=== PATIENT | male | born 1950 ===

== ENCOUNTER 2017-05-30 02:52 | Inpatient (IN) | payer MEDICARE, OTHER ==
--- NOTE | 2017-05-30 03:28 | C.PDOC ---
History Of Present Illness 67 y/o male with a PMHx of thyroid disease, c/o chest pain for the last 2 hours. Pain is to the mid-lower chest that radiates to the back that is associated with diaphoresis. Patient reports he was at rest when the pain began. Denies fever, chills, cough, SOB, nausea, vomiting, pain radiation to the shoulders or arm, leg swelling or pain, jaw pain, prolong immobilization, light headedness, or any other complaints. Time Seen by Provider: 05/30/17 03:13 Chief Complaint (Nursing): Chest Pain History Per: Patient History/Exam Limitations: no limitations Onset/Duration Of Symptoms: Hrs (2) Current Symptoms Are (Timing): Still Present Severity: Mild Quality: "Pain" Associated Symptoms: Diaphoresis Modifying Factors: None Exacerbating Factors: None Alleviating Factors: None Recent travel outside of the [place]: No Additional History Per: Patient Past Medical History Reviewed: Historical Data, Nursing Documentation, Vital Signs Vital Signs: Last Vital Signs Temp 97.6 F 05/30/17 04:28 Pulse 62 05/30/17 04:28 Resp 18 05/30/17 04:28 BP 126/70 05/30/17 04:28 Pulse Ox 99 05/30/17 04:28 - Medical History PMH: Hypothyroidism Family History: States: Unknown Family Hx - Social History Hx Alcohol Use: No Hx Substance Use: No - Immunization History Hx Tetanus Toxoid Vaccination: No Hx Influenza Vaccination: No Hx Pneumococcal Vaccination: No Review Of Systems Constitutional: Positive for: Sweats. Negative for: Fever, Chills Cardiovascular: Positive for: Chest Pain. Negative for: Light Headedness Respiratory: Negative for: Cough, Shortness of Breath Gastrointestinal: Negative for: Nausea, Vomiting Musculoskeletal: Positive for: Back Pain (Radiation of pain). Negative for: Shoulder Pain, Arm Pain, Leg Pain, Foot Pain, Other (jaw pain) Physical Exam - Physical Exam Additional Physical Exam Comments: Constitutional: No acute distress. Head: Normocephalic. Atraumatic. Eyes: PERRL. ENT: Moist mucous membranes. Neck: Supple. Cardiovascular: Regular rate. Radial pulse 2+ bilaterally. Chest: No tenderness. Respiratory: Clear to auscultation bilaterally. GI: Soft. Nontender. Nondistended. Back: No CVA tenderness. Musculoskeletal: No tenderness or swelling of extremities. Skin: No rash. Neurologic: Alert, no focal deficit. ED Course And Treatment - Laboratory Results Result Diagrams: 05/30/17 03:29 05/30/17 03:29 ECG: Interpreted By Me, Viewed By Me ECG Rhythm: Sinus Rhythm ECG Interpretation: Normal Interpretation Of ECG: No ST/T wave changes Rate From EC O2 Sat by Pulse Oximetry: 97 (RA) Pulse Ox Interpretation: Normal Medical Decision Making Medical Decision Making: Impression: 67 y/o male c/o chest pain associated with diaphoresis for the last 2 hours. PMHx of thyroid disease. Plans: * Blood work up * CXR * EKG * Aspirin * Reassess EKG sinus rhythm 63, NO ST/T wave changes CXR no acute disease. Disposition - Disposition Disposition: HOSPITALIZED Disposition Time: 04:42 Condition: FAIR Forms: [facility] (Romanian) - POA Core Measure Indicators: Chest Pain - Clinical Impression Clinical Impression: Chest pain - Scribe Statement The provider has reviewed the documentation as recorded by the Mikeibhannah wahl All medical record entries made by the Mikeibhannah were at my direction and personally dictated by me. I have reviewed the chart and agree that the record accurately reflects my personal performance of the history, physical exam, medical decision making, and the department course for this patient. I have also personally directed, reviewed, and agree with the discharge instructions and disposition.
[2017-05-30 03:32] LABS: BASO % 0.8 % (0.0-2.0); EOS # 0.4 K/uL (0.0-0.7); EOS % 6.5 % (0.0-4.0); HEMATOCRIT 47.1 % (35.0-51.0); LYMPH # 2.1 K/uL (1.0-4.3); LYMPH % 35.9 % (20.0-40.0); MEAN CELL VOLUME 90.1 fL (80.0-94.0); MEAN CORPUSCULAR HEMOGLOBIN 30.2 pg (27.0-31.0); MEAN CORPUSCULAR HGB CONC 33.5 g/dL (33.0-37.0); MEAN PLATELET VOLUME 8.7 fL (7.2-11.7); MONO # 0.6 K/uL (0.0-0.8); MONO % 10.1 % (0.0-10.0); NRBC % 0.1 % (0.0-2.0); RED CELL DISTRIBUTION WIDTH 13.3 % (11.5-14.5)
[2017-05-30 03:39] LABS: CHLORIDE 105 mmol/L (98-107)
[2017-05-30 03:40] LABS: SODIUM 142 mmol/L (132-148)
[2017-05-30 03:42] LABS: ALB/GLOB RATIO 1.1 (1.0-2.1); ALKALINE PHOSPHATASE 90 U/L (38-126); ALT/SGPT 39 U/L (21-72); AST/SGOT 28 U/L (17-59); BILIRUBIN,TOTAL 0.6 mg/dL (0.2-1.3); BLOOD UREA NITROGEN 16 mg/dL (9-20); CARBON DIOXIDE 26 mmol/L (22-30); GFR AFRICAN-AMERICAN > 60; GLUCOSE,RANDOM 123 mg/dL (75-110); TOTAL PROTEIN 6.9 g/dL (6.3-8.3)
[2017-05-30 03:43] LABS: CALCIUM 8.7 mg/dl (8.6-10.4)
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
[2017-05-30 10:11] LABS: CHOLESTEROL 156 mg/dL (0-199)
[2017-05-30 10:41] LABS: THYROID STIMULATING HORMONE 2.33 mIU/L (0.46-4.68)
[2017-05-30] MEDS: Enoxaparin 40 mg Syringe SC SCH (11:13)
--- NOTE | 2017-05-30 11:28 | RAD ---
HISTORY: chest pain COMPARISON: No prior. TECHNIQUE: Chest PA and lateral FINDINGS: LUNGS: The lungs are well inflated and clear. PLEURA: No significant pleural effusion identified. No pneumothorax apparent. CARDIOVASCULAR: Normal. OSSEOUS STRUCTURES: No significant abnormalities. VISUALIZED UPPER ABDOMEN: Normal. OTHER FINDINGS: None. IMPRESSION: No active pulmonary disease.
--- NOTE | 2017-05-30 12:04 | CP.PCM.CON ---
History of Present Illness - History of Present Illness History of Present Illness: Elderly male with history of some thyroid problem who came in with chest pain. Pain left sided and not associated with diaphoresis. He did some heavy lifting yesterday. Past Patient History - Past Medical History & Family History Past Medical History?: Yes - Past Social History Smoking Status: Never Smoked - ENDOCRINE/METABOLIC Hx Hypothyroidism: Yes - MUSCULOSKELETAL/RHEUMATOLOGICAL Hx Falls: No - PSYCHIATRIC Hx Substance Use: No Meds Allergies/Adverse Reactions: Allergies Allergy/AdvReac Type Severity Reaction Status Date / Time No Known Allergies Allergy Verified 05/30/17 05:06 - Medications Medications: Current Medications Aspirin (Aspirin Chewable) 81 mg PO DAILY [facility] Diazepam (Valium) 5 mg PO Q6 PRN PRN Reason: Anxiety Enoxaparin Sodium (Lovenox) 40 mg SC DAILY [facility] Last Admin: 05/30/17 11:13 Dose: 40 mg Famotidine (Pepcid) 20 mg PO BID [facility] Last Admin: 05/30/17 11:13 Dose: 20 mg Influenza Virus Vaccine (Afluria) 45 mcg IM .ONCE ONE Stop: 06/01/17 14:01 Ketorolac Tromethamine (Toradol) 15 mg IVP Q6 PRN PRN Reason: Pain, moderate (4-7) Last Admin: 05/30/17 06:40 Dose: 15 mg Ondansetron HCl (Zofran Inj) 4 mg IVP Q6H PRN PRN Reason: Nausea/Vomiting Pneumococcal Polyvalent Vaccine (Pneumovax 23 Vaccine) 0.5 ml IM .ONCE ONE Stop: 06/01/17 14:01 Physical Exam - Head Exam Head Exam: NORMOCEPHALIC - Neck Exam Neck exam: Positive for: Normal Inspection - Respiratory Exam Respiratory Exam: NORMAL BREATHING PATTERN - Cardiovascular Exam Cardiovascular Exam: REGULAR RHYTHM - GI/Abdominal Exam GI & Abdominal Exam: Normal Bowel Sounds - Extremities Exam Extremities exam: Positive for: normal inspection - Neurological Exam Neurological exam: Alert, Oriented x3 Results - Vital Signs Recent Vital Signs: Last Vital Signs Temp 98 F 05/30/17 08:00 Pulse 73 05/30/17 08:00 Resp 20 05/30/17 08:00 BP 136/76 05/30/17 08:00 Pulse Ox 96 05/30/17 08:00 - Labs Result Diagrams: 05/30/17 03:29 05/30/17 03:29 Labs: Laboratory Results - last 24 hr 05/30/17 05/30/17 05/30/17 05:45 09:55 10:01 PT 11.5 INR 1.0 APTT 29 D-Dimer, Quantitative Cancelled Hemoglobin A1c 6.2 Triglycerides 30 Cholesterol 156 LDL Cholesterol Direct 119 HDL Cholesterol 48 TSH 3rd Generation 2.33 - Impressions Impression: Normal sinus rhythm. Normal EKG. Assessment & Plan (1) Chest pain Assessment and Plan: Elderly male with history of no cardiac disease who came in with chest pain. Normal EKG. Pain atypical. If ACS work-up is negative may need Myocardial perfusion imaging. which can be done as out patient. Status: Acute
[2017-05-30 12:51] LABS: AMYLASE 69 U/L (30-110)
--- NOTE | 2017-05-30 20:18 | CARD ---
APPROVED REPORT EKG Measurement Heart [id number] NM [id number] <Conclusion> Normal sinus rhythm Normal ECG
--- NOTE | 2017-05-30 21:24 | CP.PCM.PN ---
<Tim Pollock - Last Filed: 05/30/17 21:21> Subjective - Date & Time of Evaluation Date of Evaluation: 05/30/17 Time of Evaluation: 21:21 - Subjective Subjective: PGY1 Note for Dr. Forte HPI: Patient seen and examined at bedside. Doing well with no complaints at this time. Stated that he does not have nay chest pain but does have some epigastric pain without heartburn. He says he was lifting something yesterday when he felt a pulling sensation in his L. Groin. Upon further examination he has a L. inguinal hernia. He said he does not have pain. It was fully reducible. I told him if it did begin to hurt or get stuck where he couldn't reduce it then she should come to the ER. I made sure that his PMD knew about the hernia and that he could follow up with a surgeon as an outpatient. Cards saw and cleared the patient from a cardiac standpoint Objective - Vital Signs/Intake and Output Vital Signs (last 24 hours): Temp Pulse Resp BP Pulse Ox 98.1 F 88 20 137/76 96 05/30/17 15:45 05/30/17 15:45 05/30/17 15:45 05/30/17 15:45 05/30/17 15:45 - Medications Medications: Current Medications Aspirin (Aspirin Chewable) 81 mg PO DAILY [facility] Diazepam (Valium) 5 mg PO Q6 PRN PRN Reason: Anxiety Enoxaparin Sodium (Lovenox) 40 mg SC DAILY [facility] Last Admin: 05/30/17 11:13 Dose: 40 mg Famotidine (Pepcid) 20 mg PO BID [facility] Last Admin: 05/30/17 18:42 Dose: 20 mg Influenza Virus Vaccine (Afluria) 45 mcg IM .ONCE ONE Stop: 06/01/17 14:01 Ketorolac Tromethamine (Toradol) 15 mg IVP Q6 PRN PRN Reason: Pain, moderate (4-7) Last Admin: 05/30/17 06:40 Dose: 15 mg Ondansetron HCl (Zofran Inj) 4 mg IVP Q6H PRN PRN Reason: Nausea/Vomiting Pneumococcal Polyvalent Vaccine (Pneumovax 23 Vaccine) 0.5 ml IM .ONCE ONE Stop: 06/01/17 14:01 - Labs Labs: PT 11.5 SECONDS (9.7-12.2) 05/30/17 05:45 INR 1.0 05/30/17 05:45 APTT 29 SECONDS (21-34) 05/30/17 05:45 - Constitutional Appears: Well, Non-toxic, No Acute Distress - Head Exam Head Exam: NORMAL INSPECTION - Eye Exam Eye Exam: EOMI - ENT Exam ENT Exam: Mucous Membranes Moist - Respiratory Exam Respiratory Exam: Clear to Ausculation Bilateral, NORMAL BREATHING PATTERN. absent: Rales, Rhonchi, Wheezes, Stridor - Cardiovascular Exam Cardiovascular Exam: REGULAR RHYTHM, RRR. absent: Bradycardia, Tachycardia, Gallop, JVD, Rubs, Murmur - GI/Abdominal Exam GI & Abdominal Exam: Soft, Tenderness (epigastric tenderness to palpation), Normal Bowel Sounds. absent: Distended - Neurological Exam Neurological Exam: Alert, Awake, Oriented x3 - Psychiatric Exam Psychiatric exam: Normal Affect, Normal Mood - Skin Skin Exam: Dry, Intact, Normal Color, Warm Assessment and Plan - Assessment and Plan (Free Text) Assessment: Chest pain, rule out acute myocardial infarction * All ROMIs negative * Cards (Livan) * cleared patient * follow up for stress test outpatient * F/U Echo L. Inguinal hernia * reducible on exam * can follow up with PMD or surgery outpatient PPX Scds Lovenox 30mg SC daily Pepcid 20mg PO daily <Milly Forte V - Last Filed: 05/31/17 06:26> Objective - Vital Signs/Intake and Output Vital Signs (last 24 hours): Temp Pulse Resp BP Pulse Ox 99.2 F 86 20 134/73 95 05/30/17 23:20 05/31/17 01:00 05/30/17 23:20 05/30/17 23:20 05/30/17 23:20 - Medications Medications: Current Medications Aspirin (Aspirin Chewable) 81 mg PO DAILY [facility] Diazepam (Valium) 5 mg PO Q6 PRN PRN Reason: Anxiety Enoxaparin Sodium (Lovenox) 40 mg SC DAILY [facility] Last Admin: 05/30/17 11:13 Dose: 40 mg Famotidine (Pepcid) 20 mg PO BID [facility] Last Admin: 05/30/17 18:42 Dose: 20 mg Influenza Virus Vaccine (Afluria) 45 mcg IM .ONCE ONE Stop: 06/01/17 14:01 Ketorolac Tromethamine (Toradol) 15 mg IVP Q6 PRN PRN Reason: Pain, moderate (4-7) Last Admin: 05/30/17 23:50 Dose: 15 mg Ondansetron HCl (Zofran Inj) 4 mg IVP Q6H PRN PRN Reason: Nausea/Vomiting Pneumococcal Polyvalent Vaccine (Pneumovax 23 Vaccine) 0.5 ml IM .ONCE ONE Stop: 06/01/17 14:01 - Labs Labs: PT 11.5 SECONDS (9.7-12.2) 05/30/17 05:45 INR 1.0 05/30/17 05:45 APTT 29 SECONDS (21-34) 05/30/17 05:45 Attending/Attestation - Attestation I have personally seen and examined this patient.: Yes I have fully participated in the care of the patient.: Yes I have reviewed all pertinent clinical information, including history, physical exam and plan: Yes Notes (Text): This is late computer entry for 05/30/17. Patient seen, examined, and case discussed with day-time resident. Patient seen at bedside this morning. Denies history of diabetes, hypertension, hyperlipidemia, prior hx of heart problems, and denies family hx of heart problems. Patient reports he had chest pain at the base of chest, was painful, but does not have it currently. Denies headache, denies palpitations, denies shortness of breathe, denies cough, denies dyspepsia, denies abdominal pain, denies nausea, denies vomitting, denies symptoms. Patient reports he did some heavy lifting recently and feels like he pulled something. (1) Chest pain, rule out acute myocardial infarction Assessment and Plan: Observation on rabbler ROMIs X3; patient JUANA X2 negative at time of shift; awaiting third JAUNA and pending echocardiogram Cardiology (Dr. Licona)-->if ACS is ruled out, recommended for myocardial stress test, which can be done outpatient Lipid panel: within normal Hgba1c: 6.2-->will need follow-up to prevent overt diabetes for the patient--> advocate lifestyle modifications EKG: NSR Medications: Aspirin 325 mg PO given in the ER Aspirin 81mg PO daily Status: Acute (2) History of thyroid disease Assessment and Plan: TSH: within normal Status: Acute (4) Prophylactic measure Assessment and Plan: Scds Lovenox 30mg SC daily Pepcid 20mg PO daily Status: Acute Disposition: Patient is pending third JUANA and Echo; If juana is negative, patient is for possible discharge tomorrow.
[2017-05-31] MEDS ORDERED: Iohexol 350mg/ml 100 ML ONE (10:19)
[2017-05-31] MEDS: Enoxaparin 40 mg Syringe SC SCH (10:25)
--- NOTE | 2017-05-31 10:32 | US ---
HISTORY: abdominal pain COMPARISON: None available. TECHNIQUE: Sonographic evaluation of the abdomen. FINDINGS: LIVER: Measures 13.9 cm in sagittal dimension and appears unremarkable. No focal hepatic mass identified. The main portal vein appears patent with normal directional flow. No intrahepatic bile duct dilatation. Trace right upper quadrant ascites. GALLBLADDER: Gallstones including immobile stones at the gallbladder neck. 5 mm non mobile echogenic focus which appears compatible with a polyp. No gallbladder wall thickening. Negative sonographic Cárdenas's sign as assessed by the director stage. COMMON BILE DUCT: Measures 5 mm. PANCREAS: Not well visualized. RIGHT KIDNEY: Measures 10.3 x 5.3 x 6.1cm. No obstructing calculus or hydronephrosis identified. 2.0 x 1.9 x 2.1 cm upper pole renal cyst. LEFT KIDNEY: Measures 11.5 x 5.4 x 5.4cm. No obstructing calculus or hydronephrosis identified. SPLEEN: Measures approximately 9.7 cm. AORTA: Limited views appear unremarkable. IVC: Limited views appear unremarkable. OTHER FINDINGS: None. IMPRESSION: Trace right upper quadrant ascites. Cholelithiasis including immobile stones at the gallbladder neck. No evidence of gallbladder wall thickening or pericholecystic edema. Negative sonographic Cárdenas's sign as assessed by the director stage. 5 mm probable gallbladder polyp. No consensus exist regarding management of polyps in the size range. Current recommendations indicate continued surveillance with serial follow-up imaging at 3, 6, and 12 months.
--- NOTE | 2017-05-31 11:37 | CT ---
PROCEDURE: CT Abdomen and Pelvis with contrast HISTORY: Abdominal Pain COMPARISON: Abdominal ultrasound performed 05/31/17 TECHNIQUE: Contrast dose: 100 mL Omnipaque 350 Radiation dose: Total exam DLP = 476.12 mGy-cm. This CT exam was performed using one or more of the following dose reduction techniques: Automated exposure control, adjustment of the mA and/or kV according to patient size, and/or use of iterative reconstruction technique. FINDINGS: LOWER THORAX: Mild bibasilar atelectasis. No visible pleural effusion or pneumothorax. Partially imaged coronary artery calcifications. LIVER: Hypoattenuation of the liver compatible with hepatic steatosis. GALLBLADDER AND BILE DUCTS: Distended gallbladder. No evidence of calcified gallstones. PANCREAS: Unremarkable. SPLEEN: Unremarkable. ADRENALS: Unremarkable. KIDNEYS AND URETERS: The kidneys enhance symmetrically. No hydronephrosis or obstructing calculus identified. 2.1 cm right renal cyst. VASCULATURE: No aortic aneurysm. BOWEL: The stomach is nondistended which limits evaluation. Gastric wall thickening noted distally with mild adjacent inflammatory changes ; correlate clinically for possibility of gastritis. Lack of oral contrast limits evaluation for bowel pathology. Bowel loops appear within normal limits of caliber without evidence of obstruction. APPENDIX: The limited visualized portions of the presumed appendix appear within normal limits of caliber. No secondary signs of acute appendicitis. PERITONEUM: Small right upper quadrant ascites. No definite free air. LYMPH NODES: No bulky adenopathy identified. BLADDER: Under distended urinary bladder. Anterior edge of the urinary bladder extends into the proximal opening of a left inguinal hernia. REPRODUCTIVE: The prostate gland measures approximately 4.2 x 4.6 cm. BONES: Degenerative changes. OTHER FINDINGS: Large left and small to moderate right fat containing inguinal hernias. The anterior edge of the urinary bladder extends into the proximal opening of the left inguinal hernia. Small fat containing umbilical hernia. IMPRESSION: Mild bibasilar atelectasis. Hypoattenuation of the liver compatible with hepatic steatosis. Distended gallbladder. Cholelithiasis evident on abdominal ultrasound performed the same day cannot be appreciated by CT. 2.1 cm right renal cyst. Under distention of the stomach limits evaluation. Gastric wall thickening is noted distally with mild adjacent inflammatory changes; correlate clinically for possibility of gastritis. Small right upper quadrant ascites. Large left and small to moderate right fat containing inguinal hernias. The anterior edge of the urinary bladder extends into the proximal opening of the left inguinal hernia. Enlarged prostate gland. Recommend correlation with PSA. Additional findings as above.
--- NOTE | 2017-05-31 11:39 | CP.PCM.CON ---
History of Present Illness - History of Present Illness History of Present Illness: SURGERY CONSULT NOTE FOR DR. MANUEL 67M presents to the hospital originally for chest and back pain that has since resolved. Patient states the pain is now in the epigastric/ RUQ region. He states he has vomited once since being in the hospital, but denies nausea currently. Patient denies fevers, chills. He has never had this type of pain before. PMH: hypothyroid PSH: skin grafts on right flank from [facility] 3years ago Social: denies tobacco, alcohol, illicit drugs abuse Allergies: NKDA Past Patient History - Past Medical History & Family History Past Medical History?: Yes - Past Social History Smoking Status: Never Smoked - ENDOCRINE/METABOLIC Hx Hypothyroidism: Yes - MUSCULOSKELETAL/RHEUMATOLOGICAL Hx Falls: No - PSYCHIATRIC Hx Substance Use: No Meds Allergies/Adverse Reactions: Allergies Allergy/AdvReac Type Severity Reaction Status Date / Time No Known Allergies Allergy Verified 05/30/17 05:06 - Medications Medications: Current Medications Diazepam (Valium) 5 mg PO Q6 PRN PRN Reason: Anxiety Enoxaparin Sodium (Lovenox) 40 mg SC DAILY [facility] Last Admin: 05/31/17 10:25 Dose: Not Given Famotidine (Pepcid) 20 mg PO BID [facility] Last Admin: 05/31/17 10:39 Dose: 20 mg Influenza Virus Vaccine (Afluria) 45 mcg IM .ONCE ONE Stop: 06/01/17 14:01 Ondansetron HCl (Zofran Inj) 4 mg IVP Q6H PRN PRN Reason: Nausea/Vomiting Last Admin: 05/31/17 08:34 Dose: 4 mg Pneumococcal Polyvalent Vaccine (Pneumovax 23 Vaccine) 0.5 ml IM .ONCE ONE Stop: 06/01/17 14:01 Physical Exam - Constitutional Appears: Non-toxic, No Acute Distress - Head Exam Head Exam: ATRAUMATIC - ENT Exam ENT Exam: Mucous Membranes Moist - Respiratory Exam Respiratory Exam: Clear to Auscultation Bilateral, NORMAL BREATHING PATTERN - Cardiovascular Exam Cardiovascular Exam: REGULAR RHYTHM, +S1, +S2 - GI/Abdominal Exam GI & Abdominal Exam: Soft, Tenderness (RUQ). absent: Distended, Firm, Guarding , Rebound, Rigid Additional comments: healed skin graft in right flank - Extremities Exam Extremities exam: Negative for: pedal edema, tenderness - Neurological Exam Neurological exam: Alert, Oriented x3 - Psychiatric Exam Psychiatric exam: Normal Affect, Normal Mood - Skin Skin Exam: Dry, Intact, Normal Color, Warm Results - Vital Signs Recent Vital Signs: Last Vital Signs Temp 98.9 F 05/31/17 08:00 Pulse 75 05/31/17 08:44 Resp 20 05/31/17 08:00 BP 124/77 05/31/17 08:00 Pulse Ox 93 L 05/31/17 08:00 - Labs Result Diagrams: 05/31/17 11:31 05/31/17 11:31 Labs: Laboratory Results - last 24 hr 05/30/17 05/30/17 05/30/17 09:55 11:36 17:11 D-Dimer, Quantitative < 200 Total Creatine Kinase 165 CK-MB (Mass) 1.50 Troponin I < 0.0120 Troponin I, Quant < 0.0120 Triglycerides 30 Cholesterol 156 LDL Cholesterol Direct 119 HDL Cholesterol 48 Amylase 69 Lipase 68 TSH 3rd Generation 2.33 Assessment & Plan - Assessment and Plan (Free Text) Assessment: 67M with RUQ pain likely of gallbladder origin US: gallstone in the gallbladder neck, CBD-5mm Plan: - NPO, pain control - IVFluids - Consent needed - Preop patient for OR tomorrow 06/01/[address] Jaspal Magdaleno, PGY2
[2017-05-31 11:44] LABS: BASO % 0.3 % (0.0-2.0); EOS % 0.3 % (0.0-4.0); HEMATOCRIT 47.4 % (35.0-51.0); MEAN CORPUSCULAR HEMOGLOBIN 29.7 pg (27.0-31.0); MEAN PLATELET VOLUME 8.9 fL (7.2-11.7); MONO # 0.7 K/uL (0.0-0.8); MONO % 4.5 % (0.0-10.0); PLATELET COUNT 132 K/uL (130-400); WHITE BLOOD COUNT 16.2 K/uL (4.8-10.8)
[2017-05-31] MEDS: Sodium Chloride 0.9% 1,000 ML IV SCH (12:00)
[2017-05-31 12:06] LABS: CHLORIDE 99 mmol/L (98-107); SODIUM 135 mmol/L (132-148)
[2017-05-31 12:09] LABS: ALB/GLOB RATIO 1.2 (1.0-2.1); ALKALINE PHOSPHATASE 71 U/L (38-126); ALT/SGPT 32 U/L (21-72); AST/SGOT 21 U/L (17-59); BILIRUBIN,TOTAL 1.2 mg/dL (0.2-1.3); BLOOD UREA NITROGEN 15 mg/dL (9-20); CALCIUM 8.2 mg/dl (8.6-10.4); CARBON DIOXIDE 26 mmol/L (22-30); GFR AFRICAN-AMERICAN > 60; GLUCOSE,RANDOM 118 mg/dL (75-110); TOTAL PROTEIN 6.2 g/dL (6.3-8.3)
[2017-05-31 12:24] LABS: NEUTROPHIL 79 % (50-75); TOTAL CELLS COUNTED 100
[2017-05-31 13:16] LABS: RBC URINE 2 /hpf (0-3); URINE BILIRUBIN NEGATIVE (NEGATIVE); URINE BLOOD 1+ (NEGATIVE); URINE COLOR Yellow (YELLOW); URINE GLUCOSE (UA) NORMAL (Normal); URINE KETONE NEGATIVE (NEGATIVE); URINE LEUKOCYTE ESTERASE NEG Leu/uL (Negative); URINE PROTEIN NEGATIVE (NEGATIVE); URINE UROBILINOGEN NORMAL mg/dL (0.2-1.0); WBC URINE < 1 /hpf (0-5)
--- NOTE | 2017-05-31 14:00 | CP.PCM.PN ---
<Tim Pollock - Last Filed: 05/31/17 13:56> Subjective - Date & Time of Evaluation Date of Evaluation: 05/31/17 Time of Evaluation: 13:56 - Subjective Subjective: PGY1 Note for Dr. Forte HPI: Patient seen and examined at bedside. Had increasing pain in abdomen this morning. I saw him multiple times this am. Patient was unable to leep on his right side all night. He was unable to roll over in bed. When i saw him again he was sitting up feeling very nausea. At which time i gave him zofran and morphine for his pain. upon examination of his abdomen he was guarding with exquisite tenderness in the RUQ but no peritoneal signs. I stopped the echo as this case is clearly not cardiac in nature. I ordered an abdominal US with the thought that this patient may have an acute betzaida. When i check on the patient again he was feeling relief after the pain medicine. I talked to the surgery resident and he agreed. He is scheduled for the OR tomorrow at 1230. Patient denies any CP, SOB, Fever, Vomiting, Diarrhea or chills. Objective - Vital Signs/Intake and Output Vital Signs (last 24 hours): Temp Pulse Resp BP Pulse Ox 98.9 F 75 20 124/77 93 L 05/31/17 08:00 05/31/17 08:44 05/31/17 08:00 05/31/17 08:00 05/31/17 08:00 - Medications Medications: Current Medications Famotidine (Pepcid) 20 mg PO BID [facility] Last Admin: 05/31/17 10:39 Dose: 20 mg Hydromorphone HCl (Dilaudid) 0.5 mg IVP Q4H PRN PRN Reason: Pain, severe (8-10) Sodium Chloride (Sodium Chloride 0.9%) 1,000 mls @ 100 mls/hr IV .Q10H [facility] Last Admin: 05/31/17 12:00 Dose: 100 mls/hr Ceftriaxone Sodium 1 gm/ (Sodium Chloride) 100 mls @ 100 mls/hr IVPB Q24H [facility] Last Admin: 05/31/17 13:11 Dose: 100 mls/hr Metronidazole (Flagyl) 250 mg in 50 mls @ 50 mls/hr IVPB Q8 [facility] Influenza Virus Vaccine (Afluria) 45 mcg IM .ONCE ONE Stop: 06/01/17 14:01 Ondansetron HCl (Zofran Inj) 4 mg IVP Q6H PRN PRN Reason: Nausea/Vomiting Last Admin: 05/31/17 08:34 Dose: 4 mg Pneumococcal Polyvalent Vaccine (Pneumovax 23 Vaccine) 0.5 ml IM .ONCE ONE Stop: 06/01/17 14:01 - Labs Labs: PT 11.5 SECONDS (9.7-12.2) 05/30/17 05:45 INR 1.0 05/30/17 05:45 APTT 29 SECONDS (21-34) 05/30/17 05:45 - Constitutional Appears: Well, Non-toxic, No Acute Distress - Head Exam Head Exam: ATRAUMATIC, NORMAL INSPECTION, NORMOCEPHALIC - Eye Exam Eye Exam: EOMI Pupil Exam: NORMAL ACCOMODATION - ENT Exam ENT Exam: Mucous Membranes Moist - Respiratory Exam Respiratory Exam: Clear to Ausculation Bilateral - Cardiovascular Exam Cardiovascular Exam: REGULAR RHYTHM - GI/Abdominal Exam GI & Abdominal Exam: Guarding, Soft, Tenderness (exquisite tenderness in RUQ with guarding. No rigidity). absent: Distended, Rigid - Extremities Exam Extremities Exam: absent: Joint Swelling - Neurological Exam Neurological Exam: Alert, Awake, Oriented x3 - Psychiatric Exam Psychiatric exam: Normal Affect, Normal Mood - Skin Skin Exam: Dry, Intact, Normal Color, Warm Assessment and Plan - Assessment and Plan (Free Text) Assessment: Chest pain, rule out acute myocardial infarction * All ROMIs negative * Cards (Livan) * cleared patient * follow up for stress test outpatient Cholelithiasis * Surgery (Arago) * OR tomorrow for lap betzaida at 1230 * Abdominal US - cholelithiasis with immobile stones at GB neck, no wall thickening or pericholecystic fluid, 5mm GB polyp * Abdominal CT - gastric wall thickening with adjacent inflam changes * NPO past midnight * Hold anticoag L. Inguinal hernia * reducible on exam * can follow up with PMD or surgery outpatient PPX Scds Lovenox 30mg SC daily - hold Pepcid 20mg PO daily <Milly Forte V - Last Filed: 05/31/17 18:07> Objective - Vital Signs/Intake and Output Vital Signs (last 24 hours): Temp Pulse Resp BP Pulse Ox 97.8 F 79 20 122/74 97 05/31/17 15:18 05/31/17 15:18 05/31/17 15:18 05/31/17 15:18 05/31/17 15:18 - Medications Medications: Current Medications Famotidine (Pepcid) 20 mg PO BID [facility] Last Admin: 05/31/17 10:39 Dose: 20 mg Hydromorphone HCl (Dilaudid) 0.5 mg IVP Q4H PRN PRN Reason: Pain, severe (8-10) Last Admin: 05/31/17 14:19 Dose: 0.5 mg Sodium Chloride (Sodium Chloride 0.9%) 1,000 mls @ 100 mls/hr IV .Q10H [facility] Last Admin: 05/31/17 12:00 Dose: 100 mls/hr Ceftriaxone Sodium 1 gm/ (Sodium Chloride) 100 mls @ 100 mls/hr IVPB Q24H [facility] Last Admin: 05/31/17 13:11 Dose: 100 mls/hr Metronidazole (Flagyl) 250 mg in 50 mls @ 50 mls/hr IVPB Q8 [facility] Last Admin: 05/31/17 14:18 Dose: 50 mls/hr Influenza Virus Vaccine (Afluria) 45 mcg IM .ONCE ONE Stop: 06/01/17 14:01 Ondansetron HCl (Zofran Inj) 4 mg IVP Q6H PRN PRN Reason: Nausea/Vomiting Last Admin: 05/31/17 08:34 Dose: 4 mg Pneumococcal Polyvalent Vaccine (Pneumovax 23 Vaccine) 0.5 ml IM .ONCE ONE Stop: 06/01/17 14:01 - Labs Labs: PT 11.5 SECONDS (9.7-12.2) 05/30/17 05:45 INR 1.0 05/30/17 05:45 APTT 29 SECONDS (21-34) 05/30/17 05:45 Attending/Attestation - Attestation I have personally seen and examined this patient.: Yes I have fully participated in the care of the patient.: Yes I have reviewed all pertinent clinical information, including history, physical exam and plan: Yes Notes (Text): Patient seen, examined, and case discussed with day-time resident. Patient seen at bedside this morning with his . Patient reports right upper quadrant abdominal pain and nausea and vomitted this morning. Patient appears more distended compared to yesterday and has positive Cárdenas's sign. Patient completed abdominal US and CT Abdomen and Pelvis w IV contrast. Nurse Reynaldo collected his blood work reflecting elevated white count. Blood, UA and urine studies collected. Patient started on Rocephin 1 gram IV daily and Flagyl 500mg IV Q 8 hours. Aspirin, Valium, Toradol and Lovenox discontinued. Discussed with surgery resident, patient going to the OR tomorrow. NPO after midnight. Resident spoke with cardiology, patient may go to procedure. Patient status changed to in-patient given patient will need surgical intervention for acute cholecystitis. (1) Chest pain, rule out acute myocardial infarction Assessment and Plan: * Cardiology (Dr. Licona) on consult-->help appreciated * Monitor ROMIs X3: negative * Lipid panel: within normal * Hgba1c: 6.2-->will need follow-up to prevent overt diabetes for the patient--> advocate lifestyle modifications * Medications: Aspirin 325 mg PO given in the ER pn admission; d/c aspirin Status: Acute (2) Acute Cholecystitis Epigastric Pain Cholelithiasis Assessment and Plan: * General surgery (Dr. Shay)-->help appreciated-->patient go to the OR tomorrow for acute cholecystitis; NPO after midnight, anticoagulation held * Lipase and amylase normal * Abdominal US (05/31/17): Trace right upper quadrant ascites. Cholelithiasis including immobile stones at the gallbladder neck. no evidence of gallbladder wall thickening or pericholecystic edema. Negative sonographic Cárdenas's sign. 5mm probable gallabldder polyp. * CT Abdomen and Pelvis (05/31/17): mild basilar atelectasis, hypoattentuation of the liver compatible with hepatic steatosis. Distended gallbladder. Cholelithiasis evident on abdominal ultrasound. 2.1 cm right renal cyst. Gastic wall thickening noted distally with mild adjacent inflammatory changes, gastritis * Flagyl 500mg IV Q 8 hours and Rocephin 1 gram Iv q daily * NS 100cc/hr * NPO after midnight Status: Acute (3) Leukocytosis Assessment and Plan: * Blood, UA and urine culture collected * Start Rocephin 1 gram Iv qdaily and Flagyl 500mg IV Q 8 hours Status: Acute (4) Prophylactic measure Assessment and Plan: * Scds * d/c Lovenox 30mg SC daily-->going to OR tomorrow * Pepcid 20mg PO daily Status: Acute Disposition: Changed to inpatient status. Patient will go to the OR tomorrow with general surgery for acute cholecystitis.
[2017-05-31] MEDS: metroNIDAZOLE IV 250mg/50 ml 250 MG/50 ML BAG IVPB SCH ×2 (14:18→21:47)
[2017-05-31] MEDS: HYDROmorphone 0.5 mg/0.5 ml ISec IVP PRN ×2 (14:19→21:46)
--- NOTE | 2017-05-31 14:52 | CP.PCM.PN ---
Subjective - Date & Time of Evaluation Date of Evaluation: 05/31/17 Time of Evaluation: 14:50 - Subjective Subjective: Awaiting for transfer to another floor. Plans for cholecystectomy tomorrow. Objective - Vital Signs/Intake and Output Vital Signs (last 24 hours): Temp Pulse Resp BP Pulse Ox 98.1 F 77 20 102/68 94 L 05/31/17 14:29 05/31/17 14:29 05/31/17 14:29 05/31/17 14:29 05/31/17 14:29 - Medications Medications: Current Medications Famotidine (Pepcid) 20 mg PO BID [facility] Last Admin: 05/31/17 10:39 Dose: 20 mg Hydromorphone HCl (Dilaudid) 0.5 mg IVP Q4H PRN PRN Reason: Pain, severe (8-10) Last Admin: 05/31/17 14:19 Dose: 0.5 mg Sodium Chloride (Sodium Chloride 0.9%) 1,000 mls @ 100 mls/hr IV .Q10H [facility] Last Admin: 05/31/17 12:00 Dose: 100 mls/hr Ceftriaxone Sodium 1 gm/ (Sodium Chloride) 100 mls @ 100 mls/hr IVPB Q24H [facility] Last Admin: 05/31/17 13:11 Dose: 100 mls/hr Metronidazole (Flagyl) 250 mg in 50 mls @ 50 mls/hr IVPB Q8 [facility] Last Admin: 05/31/17 14:18 Dose: 50 mls/hr Influenza Virus Vaccine (Afluria) 45 mcg IM .ONCE ONE Stop: 06/01/17 14:01 Ondansetron HCl (Zofran Inj) 4 mg IVP Q6H PRN PRN Reason: Nausea/Vomiting Last Admin: 05/31/17 08:34 Dose: 4 mg Pneumococcal Polyvalent Vaccine (Pneumovax 23 Vaccine) 0.5 ml IM .ONCE ONE Stop: 06/01/17 14:01 - Labs Labs: PT 11.5 SECONDS (9.7-12.2) 05/30/17 05:45 INR 1.0 05/30/17 05:45 APTT 29 SECONDS (21-34) 05/30/17 05:45 - Head Exam Head Exam: NORMOCEPHALIC - Neck Exam Neck Exam: Normal Inspection - Respiratory Exam Respiratory Exam: NORMAL BREATHING PATTERN - Cardiovascular Exam Cardiovascular Exam: REGULAR RHYTHM Assessment and Plan (1) Chest pain Assessment & Plan: May be secondary to cholecystitis/. May proceed with planned procedure with acceptable risk. Status: Acute
[2017-06-01] MEDS: Sodium Chloride 0.9% 1,000 ML IV SCH ×2 (00:48→15:31)
[2017-06-01] MEDS: HYDROmorphone 0.5 mg/0.5 ml ISec IVP PRN ×3 (01:55→12:39)
[2017-06-01] MEDS: metroNIDAZOLE IV 250mg/50 ml 250 MG/50 ML BAG IVPB SCH ×3 (05:27→21:55)
[2017-06-01 07:58] LABS: EOS # 0.1 K/uL (0.0-0.7)
[2017-06-01 08:06] LABS: BASO # 0.1 K/uL (0.0-0.2)
[2017-06-01 08:11] LABS: CHLORIDE 103 mmol/L (98-107); MEAN CELL VOLUME 89.7 fL (80.0-94.0); MONO # 0.9 K/uL (0.0-0.8); MONO % 5.7 % (0.0-10.0)
[2017-06-01 08:12] LABS: HEMATOCRIT 45.6 % (35.0-51.0); MEAN CORPUSCULAR HGB CONC 33.5 g/dL (33.0-37.0); MEAN PLATELET VOLUME 8.5 fL (7.2-11.7); PLATELET COUNT 129 K/uL (130-400); POTASSIUM 4.1 mmol/L (3.6-5.2); RED CELL DISTRIBUTION WIDTH 13.1 % (11.5-14.5); SODIUM 139 mmol/L (132-148); WHITE BLOOD COUNT 15.1 K/uL (4.8-10.8)
[2017-06-01 08:13] LABS: BASO % 0.2 % (0.0-2.0); LYMPH # 1.3 K/uL (1.0-4.3); LYMPH % 8.3 % (20.0-40.0)
[2017-06-01 08:14] LABS: ALB/GLOB RATIO 1.1 (1.0-2.1); ALKALINE PHOSPHATASE 70 U/L (38-126); ALT/SGPT 34 U/L (21-72); AST/SGOT 22 U/L (17-59); BILIRUBIN,TOTAL 0.9 mg/dL (0.2-1.3); BLOOD UREA NITROGEN 13 mg/dL (9-20); CARBON DIOXIDE 26 mmol/L (22-30); GFR AFRICAN-AMERICAN > 60; GLUCOSE,RANDOM 125 mg/dL (75-110); TOTAL PROTEIN 6.5 g/dL (6.3-8.3)
[2017-06-01 08:15] LABS: CALCIUM 7.7 mg/dl (8.6-10.4)
[2017-06-01 09:12] LABS: EOSINOPHIL 1 % (0-4); NEUTROPHIL 70 % (50-75); TOTAL CELLS COUNTED 100
--- NOTE | 2017-06-01 09:48 | CP.PCM.PN ---
<Tim Pollock - Last Filed: 06/01/17 14:20> Subjective - Date & Time of Evaluation Date of Evaluation: 06/01/17 Time of Evaluation: 09:45 - Subjective Subjective: PGY1 Note for Dr. Forte HPI: Patient seen and examined at bedside. Doing well. Was given pain medicine this morning. I talked to the surgery resident and they will be taking him for a lap betzaida today. Looks more comfortable after the pain medicine but still says he has some pain. I explained the procedure to the patient and answered all of his questions. He specifically denies SOB, CP, Diarrhea, F/N, chills Objective - Vital Signs/Intake and Output Vital Signs (last 24 hours): Temp Pulse Resp BP Pulse Ox 98.8 F 77 20 116/73 95 06/01/17 08:17 06/01/17 08:17 06/01/17 08:17 06/01/17 08:17 06/01/17 08:17 Intake and Output: 06/01/17 06/01/17 06:59 18:59 Intake Total 2200 Output Total 200 Balance 2000 - Medications Medications: Current Medications Famotidine (Pepcid) 20 mg PO BID [facility] Last Admin: 05/31/17 10:39 Dose: 20 mg Hydromorphone HCl (Dilaudid) 0.5 mg IVP Q4H PRN PRN Reason: Pain, severe (8-10) Last Admin: 06/01/17 05:39 Dose: 0.5 mg Sodium Chloride (Sodium Chloride 0.9%) 1,000 mls @ 100 mls/hr IV .Q10H [facility] Last Admin: 06/01/17 00:48 Dose: 100 mls/hr Ceftriaxone Sodium 1 gm/ (Sodium Chloride) 100 mls @ 100 mls/hr IVPB Q24H [facility] Last Admin: 05/31/17 13:11 Dose: 100 mls/hr Metronidazole (Flagyl) 250 mg in 50 mls @ 50 mls/hr IVPB Q8 [facility] Last Admin: 06/01/17 05:27 Dose: 50 mls/hr Influenza Virus Vaccine (Afluria) 45 mcg IM .ONCE ONE Stop: 06/01/17 14:01 Ondansetron HCl (Zofran Inj) 4 mg IVP Q6H PRN PRN Reason: Nausea/Vomiting Last Admin: 05/31/17 08:34 Dose: 4 mg Pneumococcal Polyvalent Vaccine (Pneumovax 23 Vaccine) 0.5 ml IM .ONCE ONE Stop: 06/02/17 14:01 - Labs Labs: 06/01/17 07:43 06/01/17 07:43 PT 11.5 SECONDS (9.7-12.2) 05/30/17 05:45 INR 1.0 05/30/17 05:45 APTT 29 SECONDS (21-34) 05/30/17 05:45 - Constitutional Appears: Well, Non-toxic, No Acute Distress - Head Exam Head Exam: ATRAUMATIC, NORMAL INSPECTION, NORMOCEPHALIC - Eye Exam Eye Exam: EOMI - ENT Exam ENT Exam: Mucous Membranes Moist - Respiratory Exam Respiratory Exam: Clear to Ausculation Bilateral, NORMAL BREATHING PATTERN. absent: Rales, Rhonchi, Wheezes, Stridor - Cardiovascular Exam Cardiovascular Exam: REGULAR RHYTHM, RRR. absent: Bradycardia, Tachycardia, Gallop, Rubs, Murmur - GI/Abdominal Exam GI & Abdominal Exam: Soft (RUQ), Normal Bowel Sounds. absent: Distended, Tenderness - Extremities Exam Extremities Exam: absent: Joint Swelling, Tenderness - Neurological Exam Neurological Exam: Alert, Awake, Oriented x3 - Psychiatric Exam Psychiatric exam: Normal Affect, Normal Mood - Skin Skin Exam: Dry, Intact, Normal Color, Warm Assessment and Plan - Assessment and Plan (Free Text) Assessment: Chest pain, rule out acute myocardial infarction * All ROMIs negative * Cards (Livan) * cleared patient for surgery * follow up for stress test outpatient Cholelithiasis * Surgery (Arago) * OR today for lap betzaida * Abdominal US - cholelithiasis with immobile stones at GB neck, no wall thickening or pericholecystic fluid, 5mm GB polyp * Abdominal CT - gastric wall thickening with adjacent inflam changes L. Inguinal hernia * reducible on exam * can follow up with PMD or surgery outpatient PPX Scds Lovenox 30mg SC daily - hold Pepcid 20mg PO daily <Milly Forte V - Last Filed: 06/02/17 08:30> Objective - Vital Signs/Intake and Output Vital Signs (last 24 hours): Temp Pulse Resp BP Pulse Ox 98.2 F 78 20 108/67 97 06/02/17 08:00 06/02/17 08:00 06/02/17 08:00 06/02/17 08:00 06/02/17 08:00 Intake and Output: 06/02/17 06/02/17 06:59 18:59 Intake Total 1400 Output Total 700 Balance 700 - Medications Medications: Current Medications Famotidine (Pepcid) 20 mg PO BID [facility] Last Admin: 05/31/17 10:39 Dose: 20 mg Hydromorphone HCl (Dilaudid) 0.5 mg IVP Q4H PRN PRN Reason: Pain, severe (8-10) Last Admin: 06/01/17 12:39 Dose: 0.5 mg Hydromorphone HCl (Dilaudid) 0.5 mg IVP Q15M PRN PRN Reason: Pain, severe (8-10) Last Admin: 06/01/17 20:18 Dose: 0.5 mg Hydromorphone/Sodium Chloride (Dilaudid [employer]ological Risk Assessor) 6 mg IV Q4H PRN; Protocol PRN Reason: Pain, moderate (4-7) Last Admin: 06/01/17 21:35 Dose: 0.2 mg Sodium Chloride (Sodium Chloride 0.9%) 1,000 mls @ 100 mls/hr IV .Q10H [facility] Last Admin: 06/02/17 04:32 Dose: 100 mls/hr Ceftriaxone Sodium 1 gm/ (Sodium Chloride) 100 mls @ 100 mls/hr IVPB Q24H [facility] Last Admin: 06/01/17 12:40 Dose: 100 mls/hr Metronidazole (Flagyl) 250 mg in 50 mls @ 50 mls/hr IVPB Q8 [facility] Last Admin: 06/02/17 05:25 Dose: 50 mls/hr Ondansetron HCl (Zofran Inj) 4 mg IVP Q6H PRN PRN Reason: Nausea/Vomiting Last Admin: 05/31/17 08:34 Dose: 4 mg Pneumococcal Polyvalent Vaccine (Pneumovax 23 Vaccine) 0.5 ml IM .ONCE ONE Stop: 06/02/17 14:01 - Labs Labs: 06/02/17 07:16 06/02/17 07:16 PT 11.5 SECONDS (9.7-12.2) 05/30/17 05:45 INR 1.0 05/30/17 05:45 APTT 29 SECONDS (21-34) 05/30/17 05:45 Attending/Attestation - Attestation I have personally seen and examined this patient.: Yes I have fully participated in the care of the patient.: Yes I have reviewed all pertinent clinical information, including history, physical exam and plan: Yes Notes (Text): This is late computer entry for 06/01/17 Patient seen, examined, and case discussed with day-time resident. Patient seen at bedside this morning with his . Patient reports increased right upper quadrant abdominal pain and increased abdominal distension compared to yesterday. Patient has positive Cárdenas's sign. Patient started on Rocephin 1 gram IV daily and Flagyl 500mg IV Q 8 hours. Patient scheduled for lap betzaida and approximate OR time at 12:30PM. (1) Acute Cholecystitis Epigastric Pain Cholelithiasis Assessment and Plan: * General surgery (Dr. Shay)-->help appreciated-->patient go to the OR today for acute cholecystitis; currently NPO after midnight, anticoagulation held day prior * Lipase and amylase normal * Abdominal US (05/31/17): Trace right upper quadrant ascites. Cholelithiasis including immobile stones at the gallbladder neck. no evidence of gallbladder wall thickening or pericholecystic edema. Negative sonographic Cárdenas's sign. 5mm probable gallabldder polyp. * CT Abdomen and Pelvis (05/31/17): mild basilar atelectasis, hypoattentuation of the liver compatible with hepatic steatosis. Distended gallbladder. Cholelithiasis evident on abdominal ultrasound. 2.1 cm right renal cyst. Gastic wall thickening noted distally with mild adjacent inflammatory changes, gastritis * Flagyl 500mg IV Q 8 hours and Rocephin 1 gram Iv q daily (active since 05/31/17 ) * NS 100cc/hr * NPO after midnight Status: Acute (2) Chest pain, rule out acute myocardial infarction Assessment and Plan: * Cardiology (Dr. Licona) on consult-->help appreciated * Monitor ROMIs X3: negative * Lipid panel: within normal * Hgba1c: 6.2-->will need follow-up to prevent overt diabetes for the patient--> advocate lifestyle modifications * Medications: Aspirin 325 mg PO given in the ER pn admission; d/c aspirin Status: Resolved (3) Leukocytosis Assessment and Plan: * Blood, UA and urine culture collected day prior to starting antibiotics * Rocephin 1 gram Iv qdaily and Flagyl 500mg IV Q 8 hours (active since 05/31/17) * Likely secondary to acute cholecystitis Status: Acute (4) Impaired glucose tolerance Assessment and Plan: * Hgba1c: 6.2-->will need follow-up to prevent overt diabetes for the patient--> advocate lifestyle modifications (5) Prophylactic measure Assessment and Plan: * Scds * Off anticoagulation secondary to going to OR today * Pepcid 20mg PO daily Status: Acute Disposition: Patient will go to the OR today with general surgery for acute cholecystitis with acceptable risk per cardiology.
[2017-06-01] MEDS ORDERED: Pneumococcal 23-Valent Vaccine IM ONE (14:00)
[2017-06-01] MEDS: Influenza Virus Vaccine 45 mcg/0.5 ml Syr IM ONE ×2 (14:52→14:54)
[2017-06-01] MEDS ORDERED: Propofol 10 mg/ml Inj (20 ML) ONE (17:21)
[2017-06-01] MEDS ORDERED: Midazolam 2 MG/2 ML VIAL ONE (17:21)
[2017-06-01] MEDS ORDERED: Succinylcholine Chloride 20 mg/ml Syr (5 ml) IV ONE (17:22)
[2017-06-01] MEDS ORDERED: Rocuronium 10 mg/ml (5 ml) ONE (17:22)
[2017-06-01] MEDS ORDERED: Lactated Ringer's 1,000 ML IV ONE ×3 (17:30→18:45)
[2017-06-01] MEDS ORDERED: Bupivacaine 0.5%/Epi 1:200,000 (10 ML SOL) ONE ×2 (17:44→19:25)
[2017-06-01] MEDS ORDERED: HYDROmorphone 0.5 mg/0.5 ml ISec IVP PRN (18:16)
[2017-06-01] MEDS ORDERED: Neostigmine Methylsulfate 3mg/3ml Syringe IV ONE (18:49)
--- NOTE | 2017-06-01 19:39 | PCM.SURG1 ---
Surgeon's Initial Post Op Note - Surgeon's Notes Surgeon: Dr. Shay Trailer Body Assembler: Gideon García Type of Anesthesia: General Endo Pre-Operative Diagnosis: Acute Cholecystitis Operative Findings: See operative report Post-Operative Diagnosis: Acute cholecystitis Operation Performed: Laparoscopic cholecystectomy converted to open Specimen/Specimens Removed: Gallbladder Estimated Blood Loss: EBL {In ML}: 200 Blood Products Given: N/A Drains Used: Shaka Post-Op Condition: Good Date of Surgery/Procedure: 06/01/17 Time of Surgery/Procedure: 06:30
[2017-06-01] MEDS ORDERED: Sodium Chloride 0.9% 1,000 ML IV ONE (20:00)
--- NOTE | 2017-06-02 00:09 | CP.PCM.PN ---
<Siri Dowell - Last Filed: 06/02/17 00:06> Subjective - Date & Time of Evaluation Date of Evaluation: 06/02/17 Time of Evaluation: 07:00 - Subjective Subjective: PGY1- Medicine Note- Dr. Forte's Service Patient seen and examined at bedside and in no acute distress. Patient resting in bed and says his pain post surgery is a 5/10. Patient has no nausea or vomiting and says he is feeling okay. Patient denies shortness of breath or chest pain. Objective - Vital Signs/Intake and Output Vital Signs (last 24 hours): Temp Pulse Resp BP Pulse Ox 98.9 F 80 20 122/78 95 06/01/17 21:30 06/01/17 21:58 06/01/17 21:30 06/01/17 21:30 06/01/17 21:30 Intake and Output: 06/01/17 06/02/17 18:59 06:59 Intake Total 750 Output Total 40 Balance 750 -40 - Medications Medications: Current Medications Famotidine (Pepcid) 20 mg PO BID [facility] Last Admin: 05/31/17 10:39 Dose: 20 mg Hydromorphone HCl (Dilaudid) 0.5 mg IVP Q4H PRN PRN Reason: Pain, severe (8-10) Last Admin: 06/01/17 12:39 Dose: 0.5 mg Hydromorphone HCl (Dilaudid) 0.5 mg IVP Q15M PRN PRN Reason: Pain, severe (8-10) Last Admin: 06/01/17 20:18 Dose: 0.5 mg Hydromorphone/Sodium Chloride (Dilaudid Director Of Entertainment) 6 mg IV Q4H PRN; Protocol PRN Reason: Pain, moderate (4-7) Last Admin: 06/01/17 21:35 Dose: 0.2 mg Sodium Chloride (Sodium Chloride 0.9%) 1,000 mls @ 100 mls/hr IV .Q10H [facility] Last Admin: 06/01/17 15:31 Dose: 100 mls/hr Ceftriaxone Sodium 1 gm/ (Sodium Chloride) 100 mls @ 100 mls/hr IVPB Q24H [facility] Last Admin: 06/01/17 12:40 Dose: 100 mls/hr Metronidazole (Flagyl) 250 mg in 50 mls @ 50 mls/hr IVPB Q8 [facility] Last Admin: 06/01/17 21:55 Dose: 50 mls/hr Ondansetron HCl (Zofran Inj) 4 mg IVP Q6H PRN PRN Reason: Nausea/Vomiting Last Admin: 05/31/17 08:34 Dose: 4 mg Pneumococcal Polyvalent Vaccine (Pneumovax 23 Vaccine) 0.5 ml IM .ONCE ONE Stop: 06/02/17 14:01 - Labs Labs: 06/01/17 07:43 06/01/17 07:43 PT 11.5 SECONDS (9.7-12.2) 05/30/17 05:45 INR 1.0 05/30/17 05:45 APTT 29 SECONDS (21-34) 05/30/17 05:45 - Constitutional Appears: Non-toxic, No Acute Distress - Head Exam Head Exam: ATRAUMATIC, NORMAL INSPECTION, NORMOCEPHALIC - Eye Exam Eye Exam: EOMI, Normal appearance, PERRL - ENT Exam ENT Exam: Mucous Membranes Moist - Neck Exam Neck Exam: Full ROM, Normal Inspection. absent: Lymphadenopathy - Respiratory Exam Respiratory Exam: Clear to Ausculation Bilateral, NORMAL BREATHING PATTERN. absent: Rales, Rhonchi, Wheezes, Respiratory Distress, Stridor - Cardiovascular Exam Cardiovascular Exam: REGULAR RHYTHM, RRR. absent: Gallop, JVD, Rubs - GI/Abdominal Exam GI & Abdominal Exam: Distended, Firm, Tenderness Additional comments: surgical incisions covered with clean, dry, intact dressing drain with sanguineous fluid - Extremities Exam Extremities Exam: Full ROM, Normal Inspection - Neurological Exam Neurological Exam: Alert, Awake, Oriented x3 - Psychiatric Exam Psychiatric exam: Normal Affect, Normal Mood - Skin Skin Exam: Intact, Normal Color, Warm Additional comments: surgical incisions covered with clean, dry, intact dressing Assessment and Plan - Assessment and Plan (Free Text) Assessment: Cholecystectomy, POD 0 * Surgery (Arago) * 06/02: lap betzaida converted to open betzaida * Abdominal US - cholelithiasis with immobile stones at GB neck, no wall thickening or pericholecystic fluid, 5mm GB polyp * Abdominal CT - gastric wall thickening with adjacent inflam changes Chest pain, rule out acute myocardial infarction * All ROMIs negative * Cards (Livan) * cleared patient for surgery * follow up for stress test outpatient Xenia Inguinal hernia * reducible on exam * can follow up with PMD or surgery outpatient PPX Scds Lovenox 30mg SC daily - hold Pepcid 20mg PO daily <Milly Forte V - Last Filed: 06/02/17 09:24> Objective - Vital Signs/Intake and Output Vital Signs (last 24 hours): Temp Pulse Resp BP Pulse Ox 98.2 F 78 20 108/67 97 06/02/17 08:00 06/02/17 08:00 06/02/17 08:00 06/02/17 08:00 06/02/17 08:00 Intake and Output: 06/02/17 06/02/17 06:59 18:59 Intake Total 1400 Output Total 700 Balance 700 - Medications Medications: Current Medications Famotidine (Pepcid) 20 mg PO BID [facility] Last Admin: 05/31/17 10:39 Dose: 20 mg Hydromorphone HCl (Dilaudid) 0.5 mg IVP Q4H PRN PRN Reason: Pain, severe (8-10) Last Admin: 06/01/17 12:39 Dose: 0.5 mg Hydromorphone HCl (Dilaudid) 0.5 mg IVP Q15M PRN PRN Reason: Pain, severe (8-10) Last Admin: 06/01/17 20:18 Dose: 0.5 mg Hydromorphone/Sodium Chloride (Dilaudid Director Of Entertainment) 6 mg IV Q4H PRN; Protocol PRN Reason: Pain, moderate (4-7) Last Admin: 06/01/17 21:35 Dose: 0.2 mg Sodium Chloride (Sodium Chloride 0.9%) 1,000 mls @ 100 mls/hr IV .Q10H [facility] Last Admin: 06/02/17 04:32 Dose: 100 mls/hr Ceftriaxone Sodium 1 gm/ (Sodium Chloride) 100 mls @ 100 mls/hr IVPB Q24H [facility] Last Admin: 06/01/17 12:40 Dose: 100 mls/hr Metronidazole (Flagyl) 250 mg in 50 mls @ 50 mls/hr IVPB Q8 [facility] Last Admin: 06/02/17 05:25 Dose: 50 mls/hr Ondansetron HCl (Zofran Inj) 4 mg IVP Q6H PRN PRN Reason: Nausea/Vomiting Last Admin: 05/31/17 08:34 Dose: 4 mg Pneumococcal Polyvalent Vaccine (Pneumovax 23 Vaccine) 0.5 ml IM .ONCE ONE Stop: 06/02/17 14:01 - Labs Labs: 06/02/17 07:16 06/02/17 07:16 PT 11.5 SECONDS (9.7-12.2) 05/30/17 05:45 INR 1.0 05/30/17 05:45 APTT 29 SECONDS (21-34) 05/30/17 05:45 Attending/Attestation - Attestation I have personally seen and examined this patient.: Yes I have fully participated in the care of the patient.: Yes I have reviewed all pertinent clinical information, including history, physical exam and plan: Yes Notes (Text): Patient seen, examined, and case discussed with day-time resident. Patient seen at bedside this morning. Patient reports he is in a lot of pain, 10 /10. Patient attempting to use the Dilaudid CORN GRINDER but not getting adequate pain relief. Patient instructed he should use the Dilaudid not at his 10/10 but when its 5-6/10 because it will need time to work and last for only 2 hours at a time. Patient has bloody output from his J-peg tube about 20 cc and reports the nurse had removed some before. Patient reports he has not had flatus nor has had a bowel movement at time of my exam this morning. Dressing is clean dry and intact and has pain that understand given he is less than 24 hours in POD1 from open cholecystecytomy. White count is improving. Cultures have not grown out anything thus far. Will continue to monitor the patient and work with conjunction with general surgery. (1) Acute Cholecystitis Epigastric Pain Cholelithiasis Assessment and Plan: * General surgery (Dr. Shay)-->help appreciated * Surgey management including preoperative/intraoperative/postoperative per surgery * Pain management per surgery * Anticoagulation per surgery * s/p POD 1 open cholecystectomy * Monitor output from right abdominal drain: 60 cc * Monitor for flatus and bowl movement * Lipase and amylase normal * Abdominal US (05/31/17): Trace right upper quadrant ascites. Cholelithiasis including immobile stones at the gallbladder neck. no evidence of gallbladder wall thickening or pericholecystic edema. Negative sonographic Cárdenas's sign. 5mm probable gallabldder polyp. * CT Abdomen and Pelvis (05/31/17): mild basilar atelectasis, hypoattentuation of the liver compatible with hepatic steatosis. Distended gallbladder. Cholelithiasis evident on abdominal ultrasound. 2.1 cm right renal cyst. Gastic wall thickening noted distally with mild adjacent inflammatory changes, gastritis * Flagyl 500mg IV Q 8 hours and Rocephin 1 gram Iv q 12H (active since 05/31/17) * NS 100cc/hr * Surgery started liquid diet for the patient Status: Acute (2) Chest pain, rule out acute myocardial infarction Assessment and Plan: * Cardiology (Dr. Licona) on consult-->help appreciated * Monitor ROMIs X3: negative * Lipid panel: within normal * Hgba1c: 6.2-->will need follow-up to prevent overt diabetes for the patient--> advocate lifestyle modifications * Off aspirin Status: Resolved (3) Leukocytosis Assessment and Plan: * Downtrending; afebrile * Blood (05/31/17): No growth after 24hours X2 * Urine Culture (05/31/17): no growth * Rocephin 1 gram Iv qdaily and Flagyl 500mg IV Q 8 hours (active since 05/31/17) * Likely secondary to acute cholecystitis Status: Acute (4) Impaired glucose tolerance Assessment and Plan: * Hgba1c: 6.2-->will need follow-up to prevent overt diabetes for the patient--> advocate lifestyle modifications (5) Prophylactic measure Assessment and Plan: * Scds * Anticoagulation per surgery * Pepcid 20mg PO daily * Pain management per surgery; current on Dilaudid CORN GRINDER and Dilaudid 0.5mg IV Q Q4H PRn severe pain * Zofran 4mg IV Q 6 PRN nausea * NS 100cc/hr Status: Acute Disposition: Patient is postoperative day 1. Monitor intake and output. Monitor for flatus. Follow-up with surgery to determine when patient is stable from their standpoint for discharge planning purposes.
[2017-06-02] MEDS: Sodium Chloride 0.9% 1,000 ML IV SCH (04:32)
[2017-06-02] MEDS: metroNIDAZOLE IV 250mg/50 ml 250 MG/50 ML BAG IVPB SCH (05:25)
--- NOTE | 2017-06-02 06:24 | OP ---
PROCEDURE DATE: 06/01/2017 PREOPERATIVE DIAGNOSES: Acute cholecystitis and cholelithiasis. POSTOPERATIVE DIAGNOSES: Acute gangrenous cholecystitis and cholelithiasis. PROCEDURE PERFORMED: Laparoscopy, attempted laparoscopic cholecystectomy, exploratory laparotomy, and open cholecystectomy. SURGEON: Mamadou Shay MD ANESTHESIA: General. FINDINGS: Gallbladder was markedly gangrenous. There were some fibrinous purulent exudates on the entire gallbladder body. The entire gallbladder was completely engulfed by omental adhesions. There were some multiple stones noted within gallbladder itself and the cystic duct area. No other pathology noted. DESCRIPTION OF PROCEDURE: Under general anesthesia, the patient was prepared and draped in usual sterile fashion. First the Veress needle was introduced in the umbilicus through which CO2 was insufflated to about 15 mmHg pressure. A 10-mm trocar was inserted through which the laparoscope was inserted. Under direct vision, a 5-mm right upper quadrant port and 5-mm epigastric ports were inserted. The patient was placed in a reverse Trendelenburg position, turned over towards the left side. The gallbladder was not visible, but the partially the omentum was removed from the collar of the gallbladder and it was noted that it was gangrenous and very friable. We were unable to grasp the gallbladder, therefore, it was partially emptied by introducing large bore needle and aspirating about 50 mL dark foul smelling bile. Cultures were taken. Attempted dissecting or visualizing these structures around the cystic duct area was impossible to close of the omentum that is obstructing the view. It was impossible to remove it with the instruments that were already employed. Therefore, decision was made to do an open cholecystectomy. The patient was prepped and prepared. A right Rosa Maria incision was made extended down the subcutaneous tissue. Bleeding was controlled with electrocautery. The fascia was then divided, so was the rectus muscle. Peritoneal cavity was then entered, the above findings were demonstrated. The omentum was then rolled off with large laparotomy pads. The area was suctioned out to visualized the gallbladder. Fundus was grasped, so was the ampulla, traction was applied. At this point, it was still impossible to identify, although we can clearly see cystic duct. Therefore, the gallbladder was dissected from the fundus down into cystic duct area, where the fundus was dissected off and the cystic duct was identified, was ligated with 0 Vicryl ties and gallbladder removed. The area was irrigated with large amount of saline solution, irrigating fluid suctioned out. CO2 is allowed to escape. The drain was then left in place and was brought out through a separate stab wound on the right upper quadrant. The abdomen was then closed utilizing a continuous suture #1 Vicryl for the peritoneum and continuous over and over suture of #1 Vicryl for the fascia and the skin was closed with multiple skin zachary. Estimated blood loss for the procedure approximately about 200 mL. The patient tolerated the procedure well and left the operating room in good condition. Mamadou Shay MD
[2017-06-02 07:25] LABS: BASO % 0.3 % (0.0-2.0); EOS # 0.2 K/uL (0.0-0.7); EOS % 1.3 % (0.0-4.0); HEMATOCRIT 40.1 % (35.0-51.0); LYMPH # 1.2 K/uL (1.0-4.3); LYMPH % 9.9 % (20.0-40.0); MEAN CELL VOLUME 89.5 fL (80.0-94.0); MEAN CORPUSCULAR HEMOGLOBIN 30.1 pg (27.0-31.0); MEAN CORPUSCULAR HGB CONC 33.7 g/dL (33.0-37.0); MEAN PLATELET VOLUME 8.7 fL (7.2-11.7); MONO # 0.9 K/uL (0.0-0.8); MONO % 7.4 % (0.0-10.0); PLATELET COUNT 123 K/uL (130-400); RED CELL DISTRIBUTION WIDTH 12.7 % (11.5-14.5); WHITE BLOOD COUNT 12.7 K/uL (4.8-10.8)
[2017-06-02 07:57] LABS: ALKALINE PHOSPHATASE 65 U/L (38-126); ALT/SGPT 45 U/L (21-72); AST/SGOT 38 U/L (17-59); BILIRUBIN,TOTAL 0.7 mg/dL (0.2-1.3); BLOOD UREA NITROGEN 13 mg/dL (9-20); CALCIUM 7.1 mg/dl (8.6-10.4); CARBON DIOXIDE 24 mmol/L (22-30); CHLORIDE 101 mmol/L (98-107); GFR AFRICAN-AMERICAN > 60; GLUCOSE,RANDOM 99 mg/dL (75-110); POTASSIUM 3.7 mmol/L (3.6-5.2); SODIUM 132 mmol/L (132-148)
[2017-06-02] MEDS: HYDROmorphone 0.5 mg/0.5 ml ISec IVP PRN (10:27)
[2017-06-02] MEDS: metroNIDAZOLE IV 500 mg/100 ml 500 MG/100 ML BAG IVPB SCH ×3 (10:50→22:31)
--- NOTE | 2017-06-02 12:07 | CP.PCM.PN ---
Subjective - Date & Time of Evaluation Date of Evaluation: 06/02/17 Time of Evaluation: 06:15 - Subjective Subjective: General Surgery- Dr. Shay Pt S&E at bedside this AM. appropriately tender around incision site. Dressing C /D/I. Tolerating diet. Denies N/V CP/SOB F/C. Objective - Vital Signs/Intake and Output Vital Signs (last 24 hours): Temp Pulse Resp BP Pulse Ox 98.2 F 78 20 108/67 97 06/02/17 08:00 06/02/17 08:00 06/02/17 08:00 06/02/17 08:00 06/02/17 08:00 Intake and Output: 06/02/17 06/02/17 06:59 18:59 Intake Total 1400 Output Total 700 Balance 700 - Medications Medications: Current Medications Famotidine (Pepcid) 20 mg PO BID [facility] Last Admin: 06/02/17 09:07 Dose: 20 mg Hydromorphone HCl (Dilaudid) 0.5 mg IVP Q4H PRN PRN Reason: Pain, severe (8-10) Last Admin: 06/02/17 10:27 Dose: 0.5 mg Hydromorphone HCl (Dilaudid) 0.5 mg IVP Q15M PRN PRN Reason: Pain, severe (8-10) Last Admin: 06/01/17 20:18 Dose: 0.5 mg Hydromorphone/Sodium Chloride (Dilaudid Tool Crib Attendant) 6 mg IV Q4H PRN; Protocol PRN Reason: Pain, moderate (4-7) Last Admin: 06/01/17 21:35 Dose: 0.2 mg Sodium Chloride (Sodium Chloride 0.9%) 1,000 mls @ 100 mls/hr IV .Q10H [facility] Last Admin: 06/02/17 04:32 Dose: 100 mls/hr Ceftriaxone Sodium 1 gm/ (Sodium Chloride) 100 mls @ 100 mls/hr IVPB Q12H [facility] Metronidazole (Flagyl) 500 mg in 100 mls @ 100 mls/hr IVPB Q8 [facility] Last Admin: 06/02/17 10:50 Dose: 100 mls/hr Ondansetron HCl (Zofran Inj) 4 mg IVP Q6H PRN PRN Reason: Nausea/Vomiting Last Admin: 05/31/17 08:34 Dose: 4 mg Pneumococcal Polyvalent Vaccine (Pneumovax 23 Vaccine) 0.5 ml IM .ONCE ONE Stop: 06/02/17 14:01 - Labs Labs: 06/02/17 07:16 06/02/17 07:16 PT 11.5 SECONDS (9.7-12.2) 05/30/17 05:45 INR 1.0 05/30/17 05:45 APTT 29 SECONDS (21-34) 05/30/17 05:45 - Constitutional Appears: No Acute Distress - Eye Exam Eye Exam: EOMI - ENT Exam ENT Exam: Mucous Membranes Moist - Respiratory Exam Respiratory Exam: Clear to Ausculation Bilateral. absent: Accessory Muscle Use , Rales, Rhonchi - Cardiovascular Exam Cardiovascular Exam: +S1, +S2 - GI/Abdominal Exam GI & Abdominal Exam: Guarding, Soft, Tenderness, Normal Bowel Sounds. absent: Distended, Firm - Neurological Exam Neurological Exam: Alert, Awake, Oriented x3 - Skin Skin Exam: Normal Color Assessment and Plan - Assessment and Plan (Free Text) Assessment: 67M s/p open cholecystectomy POD1 Plan: - pain control - advance diet to regular - abx - +OOB IC - monitor lizy output - further recs per Dr. Jaspal Negron PGY1
[2017-06-02 12:17] LABS: NEUTROPHIL 77 % (50-75); TOTAL CELLS COUNTED 100
[2017-06-02 12:18] LABS: LARGE PLATELETS PRESENT
--- NOTE | 2017-06-02 13:26 | CP.PCM.PN ---
Subjective - Date & Time of Evaluation Date of Evaluation: 06/02/17 Time of Evaluation: 13:24 - Subjective Subjective: Complain of at the procedure site. No chest pain or shortness of breath. Objective - Vital Signs/Intake and Output Vital Signs (last 24 hours): Temp Pulse Resp BP Pulse Ox 98.2 F 78 20 108/67 97 06/02/17 08:00 06/02/17 08:00 06/02/17 08:00 06/02/17 08:00 06/02/17 08:00 Intake and Output: 06/02/17 06/02/17 06:59 18:59 Intake Total 1400 Output Total 700 Balance 700 - Medications Medications: Current Medications Famotidine (Pepcid) 20 mg PO BID [facility] Last Admin: 06/02/17 09:07 Dose: 20 mg Hydromorphone HCl (Dilaudid) 0.5 mg IVP Q4H PRN PRN Reason: Pain, severe (8-10) Last Admin: 06/02/17 10:27 Dose: 0.5 mg Hydromorphone HCl (Dilaudid) 0.5 mg IVP Q15M PRN PRN Reason: Pain, severe (8-10) Last Admin: 06/01/17 20:18 Dose: 0.5 mg Hydromorphone/Sodium Chloride (Dilaudid Head Transfer Clerk) 6 mg IV Q4H PRN; Protocol PRN Reason: Pain, moderate (4-7) Last Admin: 06/01/17 21:35 Dose: 0.2 mg Sodium Chloride (Sodium Chloride 0.9%) 1,000 mls @ 100 mls/hr IV .Q10H [facility] Last Admin: 06/02/17 04:32 Dose: 100 mls/hr Ceftriaxone Sodium 1 gm/ (Sodium Chloride) 100 mls @ 100 mls/hr IVPB Q12H [facility] Last Admin: 06/02/17 12:27 Dose: 100 mls/hr Metronidazole (Flagyl) 500 mg in 100 mls @ 100 mls/hr IVPB Q8 [facility] Last Admin: 06/02/17 10:50 Dose: 100 mls/hr Ondansetron HCl (Zofran Inj) 4 mg IVP Q6H PRN PRN Reason: Nausea/Vomiting Last Admin: 05/31/17 08:34 Dose: 4 mg Pneumococcal Polyvalent Vaccine (Pneumovax 23 Vaccine) 0.5 ml IM .ONCE ONE Stop: 06/02/17 14:01 - Labs Labs: 06/02/17 07:16 06/02/17 07:16 PT 11.5 SECONDS (9.7-12.2) 05/30/17 05:45 INR 1.0 05/30/17 05:45 APTT 29 SECONDS (21-34) 05/30/17 05:45 - Head Exam Head Exam: NORMOCEPHALIC - Neck Exam Neck Exam: Normal Inspection - Respiratory Exam Respiratory Exam: NORMAL BREATHING PATTERN - Cardiovascular Exam Cardiovascular Exam: REGULAR RHYTHM - Extremities Exam Extremities Exam: Normal Inspection - Neurological Exam Neurological Exam: Alert, Oriented x3 Assessment and Plan (1) Chest pain Assessment & Plan: No chest pain or shortness of breath. Continue current care. PT/OT. Status: Acute
[2017-06-02] MEDS ORDERED: Pneumococcal 23-Valent Vaccine IM ONE (14:00)
[2017-06-02] MEDS: Potassium Ch 20mEq in D5-1/2NS 1,000 ML IV SCH (22:31)
--- NOTE | 2017-06-03 00:05 | CP.PCM.PN ---
<Siri Dowell - Last Filed: 06/03/17 00:02> Subjective - Date & Time of Evaluation Date of Evaluation: 06/03/17 Time of Evaluation: 07:00 - Subjective Subjective: PGY1- Medicine Note- Dr. Forte's Service Patient seen and examined at bedside and in no acute distress. Patient says his abdominal pain is up to 8/10. He has had no gas or bowel movement yet. He has been able to have liquids with no nausea or vomiting. Patient denies chest pain and shortness of breath. Objective - Vital Signs/Intake and Output Vital Signs (last 24 hours): Temp Pulse Resp BP Pulse Ox 98.5 F 69 20 144/87 95 06/02/17 15:00 06/02/17 16:00 06/02/17 15:00 06/02/17 15:00 06/02/17 15:00 Intake and Output: 06/02/17 06/03/17 18:59 06:59 Intake Total 1280 Output Total 50 30 Balance 1230 -30 - Medications Medications: Current Medications Famotidine (Pepcid) 20 mg PO BID [facility] Last Admin: 06/02/17 17:58 Dose: 20 mg Heparin Sodium (Porcine) (Heparin) 5,000 units SC Q12 [facility] Last Admin: 06/02/17 22:30 Dose: 5,000 units Hydromorphone HCl (Dilaudid) 0.5 mg IVP Q4H PRN PRN Reason: Pain, severe (8-10) Last Admin: 06/02/17 10:27 Dose: 0.5 mg Hydromorphone HCl (Dilaudid) 0.5 mg IVP Q15M PRN PRN Reason: Pain, severe (8-10) Last Admin: 06/01/17 20:18 Dose: 0.5 mg Hydromorphone/Sodium Chloride (Dilaudid Scrap Crusher) 6 mg IV Q4H PRN; Protocol PRN Reason: Pain, moderate (4-7) Last Admin: 06/02/17 16:01 Dose: 6 mg Ceftriaxone Sodium 1 gm/ (Sodium Chloride) 100 mls @ 100 mls/hr IVPB Q12H [facility] Last Admin: 06/02/17 21:20 Dose: 100 mls/hr Metronidazole (Flagyl) 500 mg in 100 mls @ 100 mls/hr IVPB Q8 [facility] Last Admin: 06/02/17 22:31 Dose: 100 mls/hr Potassium Chloride/Dextrose/Sod Cl (Potassium Chl 20 Meq In D5-1/2ns) 1,000 mls @ 100 mls/hr IV .Q10H [facility] Last Admin: 06/02/17 22:31 Dose: 100 mls/hr Ondansetron HCl (Zofran Inj) 4 mg IVP Q6H PRN PRN Reason: Nausea/Vomiting Last Admin: 05/31/17 08:34 Dose: 4 mg - Labs Labs: 06/02/17 07:16 06/02/17 07:16 PT 11.5 SECONDS (9.7-12.2) 05/30/17 05:45 INR 1.0 05/30/17 05:45 APTT 29 SECONDS (21-34) 05/30/17 05:45 - Constitutional Appears: Non-toxic, No Acute Distress - Head Exam Head Exam: ATRAUMATIC, NORMAL INSPECTION, NORMOCEPHALIC - Eye Exam Eye Exam: EOMI, Normal appearance, PERRL - ENT Exam ENT Exam: Mucous Membranes Moist - Neck Exam Neck Exam: Full ROM. absent: Tenderness - Respiratory Exam Respiratory Exam: Clear to Ausculation Bilateral, NORMAL BREATHING PATTERN. absent: Rales, Rhonchi, Wheezes, Respiratory Distress, Stridor - Cardiovascular Exam Cardiovascular Exam: REGULAR RHYTHM, RRR. absent: Gallop, Rubs, Murmur - GI/Abdominal Exam GI & Abdominal Exam: Distended, Firm, Tenderness Additional comments: right side surgical incisions covered with clean, dry, intact dressings drain with sanguineous fluid - Extremities Exam Extremities Exam: Full ROM, Normal Inspection - Neurological Exam Neurological Exam: Alert, Awake, Oriented x3 - Psychiatric Exam Psychiatric exam: Normal Affect, Normal Mood - Skin Skin Exam: Intact, Normal Color, Warm Additional comments: surgical incisions covered with clean, dry, intact dressing Assessment and Plan - Assessment and Plan (Free Text) Assessment: Cholecystectomy, POD 2 * Surgery (Arago) * 06/02: lap betzaida converted to open betzaida * Abdominal US - cholelithiasis with immobile stones at GB neck, no wall thickening or pericholecystic fluid, 5mm GB polyp * Abdominal CT - gastric wall thickening with adjacent inflam changes Chest pain, rule out acute myocardial infarction * All ROMIs negative * Cards (Livan) * cleared patient for surgery * follow up for stress test outpatient L. Inguinal hernia * reducible on exam * can follow up with PMD or surgery outpatient PPX Scds Lovenox 30mg SC daily - hold Pepcid 20mg PO daily <Milly Forte V - Last Filed: 06/03/17 14:17> Objective - Vital Signs/Intake and Output Vital Signs (last 24 hours): Temp Pulse Resp BP Pulse Ox 99.2 F 88 20 117/75 96 06/03/17 08:53 06/03/17 08:53 06/03/17 08:53 06/03/17 08:53 06/03/17 08:53 Intake and Output: 06/03/17 06/03/17 06:59 18:59 Intake Total 1300 1280 Output Total 570 20 Balance 730 1260 - Medications Medications: Current Medications Famotidine (Pepcid) 20 mg PO BID [facility] Last Admin: 06/03/17 09:44 Dose: 20 mg Heparin Sodium (Porcine) (Heparin) 5,000 units SC Q12 [facility] Last Admin: 06/03/17 09:44 Dose: 5,000 units Hydromorphone HCl (Dilaudid) 0.5 mg IVP Q15M PRN PRN Reason: Pain, severe (8-10) Last Admin: 06/01/17 20:18 Dose: 0.5 mg Hydromorphone HCl (Dilaudid) 0.5 mg IVP Q4H PRN PRN Reason: Pain, severe (8-10) Ceftriaxone Sodium 1 gm/ (Sodium Chloride) 100 mls @ 100 mls/hr IVPB Q12H [facility] Last Admin: 06/03/17 09:43 Dose: 100 mls/hr Metronidazole (Flagyl) 500 mg in 100 mls @ 100 mls/hr IVPB Q8 [facility] Last Admin: 06/03/17 13:34 Dose: 100 mls/hr Potassium Chloride/Dextrose/Sod Cl (Potassium Chl 20 Meq In D5-1/2ns) 1,000 mls @ 100 mls/hr IV .Q10H [facility] Last Admin: 06/03/17 13:24 Dose: 100 mls/hr Ondansetron HCl (Zofran Inj) 4 mg IVP Q6H PRN PRN Reason: Nausea/Vomiting Last Admin: 05/31/17 08:34 Dose: 4 mg Oxycodone/Acetaminophen (Percocet 5/325 Mg Tab) 1 tab PO Q4H PRN PRN Reason: Pain, moderate (4-7) Stop: 06/06/17 07:38 Last Admin: 06/03/17 13:32 Dose: 1 tab - Labs Labs: 06/03/17 07:15 06/03/17 07:15 PT 11.5 SECONDS (9.7-12.2) 05/30/17 05:45 INR 1.0 05/30/17 05:45 APTT 29 SECONDS (21-34) 05/30/17 05:45 Attending/Attestation - Attestation I have personally seen and examined this patient.: Yes I have fully participated in the care of the patient.: Yes I have reviewed all pertinent clinical information, including history, physical exam and plan: Yes Notes (Text): Patient seen, examined, and case discussed with day-time resident. Patient seen at bedside this morning. Patient reports his pain is between 5-6/ 10 on pain scale. Patient completed last dose of Dilaudid SUPPORT TECHNICIAN per nurse, and will start PO Percocet. Patient reports he has not had flatus, has not had bowel movement, but no belching no burping either. Patient has bloody output from his J-peg tube about 20 cc and reports the nurse had removed some before. Dressing is clean dry and intact; patient is POD2 from open cholecystecytomy. Patient is distended, and appears has gasey, will need to monitor for flatus and bowel movement. White count has normalized, but has bandemia. Patient is currently on IV abx which have been on since pre-operation. Lactic acid was completed yesterday: 1.4; code sepsis not called. Blood Cultures (05/31/17) have not grown out anything for past 48 hours X2 and remains afebrile. Discussed with assembler surgical garment, Kenny, possible surgery may sign off tomorrow and patient to be discharge with drain. Will monitor to see if bandemia and will continue IV abx in mean time. Assessment/Plan (1) Acute Cholecystitis Epigastric Pain Cholelithiasis Assessment and Plan: * General surgery (Dr. Shay)-->help appreciated * Surgey management including preoperative/intraoperative/postoperative per surgery * Pain management per surgery * Anticoagulation per surgery * s/p POD 2 open cholecystectomy * Monitor output from right abdominal drain: 120cc * Monitor for flatus and bowl movement * Lipase and amylase normal * Abdominal US (05/31/17): Trace right upper quadrant ascites. Cholelithiasis including immobile stones at the gallbladder neck. no evidence of gallbladder wall thickening or pericholecystic edema. Negative sonographic Cárdenas's sign. 5mm probable gallabldder polyp. * CT Abdomen and Pelvis (05/31/17): mild basilar atelectasis, hypoattentuation of the liver compatible with hepatic steatosis. Distended gallbladder. Cholelithiasis evident on abdominal ultrasound. 2.1 cm right renal cyst. Gastic wall thickening noted distally with mild adjacent inflammatory changes, gastritis * Flagyl 500mg IV Q 8 hours and Rocephin 1 gram Iv q 12H (active since 05/31/17) * Blood cultures (05/31): no growth After 48 hours X2 * NS 100cc/hr * Patient's diet advanced to low fat today at [facility] time Status: Acute (2) Chest pain, rule out acute myocardial infarction Assessment and Plan: * Cardiology (Dr. Licona) on consult-->help appreciated * Monitor ROMIs X3: negative * Lipid panel: within normal * Hgba1c: 6.2-->will need follow-up to prevent overt diabetes for the patient--> advocate lifestyle modifications * Off aspirin Status: Resolved (3) Leukocytosis Assessment and Plan: * Downtrending; afebrile * Blood (05/31/17): No growth after 48 hours X2 * Urine Culture (05/31/17): no growth * Rocephin 1 gram Iv q12 and Flagyl 500mg IV Q 8 hours (active since 05/31/17) * Likely secondary to acute cholecystitis * lactic acid: 1.4 * Code sepsis not called given blood pressure within normal and lactic acid: 1.4 ; will continue present treatment unless patient's condition changes Status: Acute (4) Impaired glucose tolerance Assessment and Plan: * Hgba1c: 6.2-->will need follow-up to prevent overt diabetes for the patient--> advocate lifestyle modifications (5) Prophylactic measure Assessment and Plan: * Scds * Anticoagulation per surgery * Pepcid 20mg PO daily * Pain management per surgery; off Dilaudid SUPPORT TECHNICIAN and Dilaudid 0.5mg IV Q Q4H PRn severe pain (8-10) and Percocet 5/325 1 tab PO Q 4hour PRN moderate pain * Zofran 4mg IV Q 6 PRN nausea * D51/2 NS 100cc/hr * PT eval Status: Acute Disposition: Patient is postoperative day 2. Monitor intake and output. Monitor for flatus. Follow-up with surgery to determine when patient is stable from their standpoint for discharge planning purposes. Patient started on PO pain medication check for adequate pain control. Patient to continue IV abx; has bandemia; though white count has normalized. PT eval placed.
[2017-06-03] MEDS: metroNIDAZOLE IV 500 mg/100 ml 500 MG/100 ML BAG IVPB SCH ×3 (05:34→22:47)
[2017-06-03 07:29] LABS: BASO % 0.4 % (0.0-2.0); EOS # 0.3 K/uL (0.0-0.7); EOS % 3.4 % (0.0-4.0); LYMPH # 0.6 K/uL (1.0-4.3); LYMPH % 6.7 % (20.0-40.0); MEAN CELL VOLUME 89.1 fL (80.0-94.0); MEAN CORPUSCULAR HEMOGLOBIN 30.5 pg (27.0-31.0); MEAN CORPUSCULAR HGB CONC 34.2 g/dL (33.0-37.0); MEAN PLATELET VOLUME 8.4 fL (7.2-11.7); MONO % 10.1 % (0.0-10.0); NRBC % 0.1 % (0.0-2.0); PLATELET COUNT 133 K/uL (130-400); RED CELL DISTRIBUTION WIDTH 12.8 % (11.5-14.5); WHITE BLOOD COUNT 9.5 K/uL (4.8-10.8)
[2017-06-03 07:38] LABS: ALKALINE PHOSPHATASE 66 U/L (38-126); ALT/SGPT 43 U/L (21-72); AST/SGOT 35 U/L (17-59); BILIRUBIN,TOTAL 0.5 mg/dL (0.2-1.3); BLOOD UREA NITROGEN 9 mg/dL (9-20); CALCIUM 7.8 mg/dl (8.6-10.4); CARBON DIOXIDE 25 mmol/L (22-30); CHLORIDE 97 mmol/L (98-107); GFR AFRICAN-AMERICAN > 60; GLUCOSE,RANDOM 161 mg/dL (75-110); POTASSIUM 3.5 mmol/L (3.6-5.2); SODIUM 131 mmol/L (132-148); TOTAL PROTEIN 5.6 g/dL (6.3-8.3)
[2017-06-03] MEDS ORDERED: HYDROmorphone 0.5 mg/0.5 ml ISec IVP PRN (07:38)
--- NOTE | 2017-06-03 07:41 | CP.PCM.PN ---
Subjective - Date & Time of Evaluation Date of Evaluation: 06/03/17 Time of Evaluation: 07:38 - Subjective Subjective: Gen Surg: Dr Shay Pt S&E. PIEDAD. Sitting up in chair. Reports continues to have pain at the site of incision, but it is improving. He is using incentive spirometer. Counseled on importance of use. Pt has been tolerating liquids. Denies flatus or BM yet. States he is hungry. Denies N/V, F/C, SOB, Drain 40cc serosanguinous Objective - Vital Signs/Intake and Output Vital Signs (last 24 hours): Temp Pulse Resp BP Pulse Ox 99 F 72 20 121/75 94 L 06/02/17 23:35 06/03/17 00:08 06/02/17 23:35 06/02/17 23:35 06/02/17 23:35 Intake and Output: 06/03/17 06/03/17 06:59 18:59 Intake Total 1300 Output Total 570 Balance 730 - Medications Medications: Current Medications Famotidine (Pepcid) 20 mg PO BID [facility] Last Admin: 06/02/17 17:58 Dose: 20 mg Heparin Sodium (Porcine) (Heparin) 5,000 units SC Q12 [facility] Last Admin: 06/02/17 22:30 Dose: 5,000 units Hydromorphone HCl (Dilaudid) 0.5 mg IVP Q15M PRN PRN Reason: Pain, severe (8-10) Last Admin: 06/01/17 20:18 Dose: 0.5 mg Hydromorphone HCl (Dilaudid) 0.5 mg IVP Q4H PRN PRN Reason: Pain, severe (8-10) Ceftriaxone Sodium 1 gm/ (Sodium Chloride) 100 mls @ 100 mls/hr IVPB Q12H [facility] Last Admin: 06/02/17 21:20 Dose: 100 mls/hr Metronidazole (Flagyl) 500 mg in 100 mls @ 100 mls/hr IVPB Q8 [facility] Last Admin: 06/03/17 05:34 Dose: 100 mls/hr Potassium Chloride/Dextrose/Sod Cl (Potassium Chl 20 Meq In D5-1/2ns) 1,000 mls @ 100 mls/hr IV .Q10H [facility] Last Admin: 06/02/17 22:31 Dose: 100 mls/hr Ondansetron HCl (Zofran Inj) 4 mg IVP Q6H PRN PRN Reason: Nausea/Vomiting Last Admin: 05/31/17 08:34 Dose: 4 mg Oxycodone/Acetaminophen (Percocet 5/325 Mg Tab) 1 tab PO Q4H PRN PRN Reason: Pain, moderate (4-7) Stop: 06/06/17 07:38 - Labs Labs: 06/03/17 07:15 06/02/17 07:16 PT 11.5 SECONDS (9.7-12.2) 05/30/17 05:45 INR 1.0 05/30/17 05:45 APTT 29 SECONDS (21-34) 05/30/17 05:45 - Constitutional Appears: Non-toxic, No Acute Distress - Head Exam Head Exam: NORMOCEPHALIC - Eye Exam Eye Exam: absent: Scleral icterus - Respiratory Exam Respiratory Exam: absent: Accessory Muscle Use, Respiratory Distress - Cardiovascular Exam Cardiovascular Exam: REGULAR RHYTHM. absent: Tachycardia - GI/Abdominal Exam GI & Abdominal Exam: Soft, Tenderness (RUQ - post-op and appropriate). absent: Distended, Firm Additional comments: RUQ dressing c/d/i - will change dressing this afternoon - Neurological Exam Neurological Exam: Alert, Awake, Oriented x3 - Psychiatric Exam Psychiatric exam: Normal Affect, Normal Mood - Skin Skin Exam: Normal Color, Warm Assessment and Plan - Assessment and Plan (Free Text) Assessment: 67M POD2 s/p lap betzaida converted to open will adv to low-fat diet D/C COMPUTER TECHNOLOGY TRAINER - will place on PO percocet with dilaudid for breakthrough cont to encourage ambulation and IS use will d/w Dr Jaspal Cardenas, PGY3
[2017-06-03 10:03] LABS: EOSINOPHIL 2 % (0-4); NEUTROPHIL 72 % (50-75); TOTAL CELLS COUNTED 100
[2017-06-03] MEDS: Potassium Ch 20mEq in D5-1/2NS 1,000 ML IV SCH ×2 (13:24→22:14)
[2017-06-03] MEDS: Oxycodone/Acetaminophen 5/325 mg Tab PO PRN ×2 (13:32→21:39)
--- NOTE | 2017-06-03 17:07 | CP.PCM.PN ---
Subjective - Date & Time of Evaluation Date of Evaluation: 06/03/17 Time of Evaluation: 17:05 - Subjective Subjective: Some abdominal discomfort. Still have drainage. Objective - Vital Signs/Intake and Output Vital Signs (last 24 hours): Temp Pulse Resp BP Pulse Ox 99.1 F 82 22 147/80 94 L 06/03/17 15:56 06/03/17 15:56 06/03/17 15:56 06/03/17 15:56 06/03/17 15:56 Intake and Output: 06/03/17 06/03/17 06:59 18:59 Intake Total 1300 1280 Output Total 570 20 Balance 730 1260 - Medications Medications: Current Medications Famotidine (Pepcid) 20 mg PO BID [facility] Last Admin: 06/03/17 09:44 Dose: 20 mg Heparin Sodium (Porcine) (Heparin) 5,000 units SC Q12 [facility] Last Admin: 06/03/17 09:44 Dose: 5,000 units Hydromorphone HCl (Dilaudid) 0.5 mg IVP Q15M PRN PRN Reason: Pain, severe (8-10) Last Admin: 06/01/17 20:18 Dose: 0.5 mg Hydromorphone HCl (Dilaudid) 0.5 mg IVP Q4H PRN PRN Reason: Pain, severe (8-10) Ceftriaxone Sodium 1 gm/ (Sodium Chloride) 100 mls @ 100 mls/hr IVPB Q12H [facility] Last Admin: 06/03/17 09:43 Dose: 100 mls/hr Metronidazole (Flagyl) 500 mg in 100 mls @ 100 mls/hr IVPB Q8 [facility] Last Admin: 06/03/17 13:34 Dose: 100 mls/hr Potassium Chloride/Dextrose/Sod Cl (Potassium Chl 20 Meq In D5-1/2ns) 1,000 mls @ 100 mls/hr IV .Q10H [facility] Last Admin: 06/03/17 13:24 Dose: 100 mls/hr Ondansetron HCl (Zofran Inj) 4 mg IVP Q6H PRN PRN Reason: Nausea/Vomiting Last Admin: 05/31/17 08:34 Dose: 4 mg Oxycodone/Acetaminophen (Percocet 5/325 Mg Tab) 1 tab PO Q4H PRN PRN Reason: Pain, moderate (4-7) Stop: 06/06/17 07:38 Last Admin: 06/03/17 13:32 Dose: 1 tab Saccharomyces Boulardii (Florastor) 250 mg PO BID [facility] - Labs Labs: 06/03/17 07:15 06/03/17 07:15 PT 11.5 SECONDS (9.7-12.2) 05/30/17 05:45 INR 1.0 05/30/17 05:45 APTT 29 SECONDS (21-34) 05/30/17 05:45 - Head Exam Head Exam: NORMOCEPHALIC - Neck Exam Neck Exam: Normal Inspection - Respiratory Exam Respiratory Exam: NORMAL BREATHING PATTERN - Cardiovascular Exam Cardiovascular Exam: REGULAR RHYTHM - Extremities Exam Extremities Exam: Normal Inspection - Neurological Exam Neurological Exam: Normal Gait, Oriented x3 Assessment and Plan (1) Chest pain Assessment & Plan: No more chest pain, only abdominal pain. S/P chelecystectomy. Control pain and maintain electrolyte balance. Status: Acute
[2017-06-03] MEDS: Saccharomyces Boulardi 250 mg Cap PO SCH (18:05)
[2017-06-04 00:59] VITALS: RESP 20
--- NOTE | 2017-06-04 01:17 | CP.PCM.PN ---
<IslandtonRadha amarolinh E - Last Filed: 06/04/17 07:14> Subjective - Date & Time of Evaluation Date of Evaluation: 06/04/17 Time of Evaluation: 00:10 - Subjective Subjective: PGY 1 Medicine note Patient was seen and examined at bedside. Patient was resting comfortably in bed. Patient reports an 8/10 abdominal pain but denies fever, chills, nausea, vomiting, chest pain and palpitations, bowel movement and passing flatus. Patient reports that he is able to tolerate his diet. Patient states that he is using his incentive spirometer. Objective - Vital Signs/Intake and Output Vital Signs (last 24 hours): Temp Pulse Resp BP Pulse Ox 98 F 73 20 127/74 97 06/03/17 23:35 06/04/17 00:00 06/03/17 23:35 06/03/17 23:35 06/03/17 23:35 Intake and Output: 06/03/17 06/04/17 18:59 06:59 Intake Total 1280 900 Output Total 20 40 Balance 1260 860 - Medications Medications: Current Medications Famotidine (Pepcid) 20 mg PO BID [facility] Last Admin: 06/03/17 18:04 Dose: 20 mg Heparin Sodium (Porcine) (Heparin) 5,000 units SC Q12 [facility] Last Admin: 06/03/17 21:39 Dose: 5,000 units Hydromorphone HCl (Dilaudid) 0.5 mg IVP Q15M PRN PRN Reason: Pain, severe (8-10) Last Admin: 06/01/17 20:18 Dose: 0.5 mg Hydromorphone HCl (Dilaudid) 0.5 mg IVP Q4H PRN PRN Reason: Pain, severe (8-10) Ceftriaxone Sodium 1 gm/ (Sodium Chloride) 100 mls @ 100 mls/hr IVPB Q12H [facility] Last Admin: 06/03/17 21:39 Dose: 100 mls/hr Metronidazole (Flagyl) 500 mg in 100 mls @ 100 mls/hr IVPB Q8 [facility] Last Admin: 06/03/17 22:47 Dose: 100 mls/hr Potassium Chloride/Dextrose/Sod Cl (Potassium Chl 20 Meq In D5-1/2ns) 1,000 mls @ 100 mls/hr IV .Q10H [facility] Last Admin: 06/03/17 22:14 Dose: Not Given Ondansetron HCl (Zofran Inj) 4 mg IVP Q6H PRN PRN Reason: Nausea/Vomiting Last Admin: 05/31/17 08:34 Dose: 4 mg Oxycodone/Acetaminophen (Percocet 5/325 Mg Tab) 1 tab PO Q4H PRN PRN Reason: Pain, moderate (4-7) Stop: 06/06/17 07:38 Last Admin: 06/03/17 21:39 Dose: 1 tab Saccharomyces Boulardii (Florastor) 250 mg PO BID [facility] Last Admin: 06/03/17 18:05 Dose: 250 mg - Labs Labs: 06/03/17 07:15 06/03/17 07:15 PT 11.5 SECONDS (9.7-12.2) 05/30/17 05:45 INR 1.0 05/30/17 05:45 APTT 29 SECONDS (21-34) 05/30/17 05:45 - Constitutional Appears: No Acute Distress - Head Exam Head Exam: ATRAUMATIC, NORMAL INSPECTION - Eye Exam Eye Exam: EOMI, Normal appearance - Respiratory Exam Respiratory Exam: Clear to Ausculation Bilateral, NORMAL BREATHING PATTERN - Cardiovascular Exam Cardiovascular Exam: REGULAR RHYTHM, +S1, +S2 - GI/Abdominal Exam GI & Abdominal Exam: Soft, Tenderness, Normal Bowel Sounds - Extremities Exam Extremities Exam: Normal Inspection. absent: Calf Tenderness, Pedal Edema, Tenderness - Neurological Exam Neurological Exam: Alert, Awake, Oriented x3 - Psychiatric Exam Psychiatric exam: Normal Affect - Skin Skin Exam: Normal Color, Warm Assessment and Plan (1) S/P cholecystectomy Assessment & Plan: POD # 3, Stable Surgery (Arago) * 06/01: lap betzaida converted to open betzaida * Abdominal US - cholelithiasis with immobile stones at GB neck, no wall thickening or pericholecystic fluid, 5mm GB polyp * Abdominal CT - gastric wall thickening with adjacent inflammation changes Continue pain management as per surgery * Dilaudid 0.5mg IVP q4h PRN * Percocet 1 tab PO Q4H prn Continue to monitor output from right abdominal drain as per surgery Monitor for flatus and bowl movement Status: Acute (2) Chest pain, rule out acute myocardial infarction Assessment & Plan: All ROMIs negative x3 Lipid panel: within normal Hgba1c: 6.2 Cardiology, Dr. Licona---> Help appreciated * cleared patient for surgery * follow up for stress test outpatient Status: Acute (3) Leukocytosis Assessment & Plan: Afebrile, Trending down * Blood (05/31/17): No growth after 48 hours X2 * Urine Culture (05/31/17): no growth Medications: * Rocephin 1gm IVPB Q12H * Flagyl 500mg IVPB q8h Status: Acute (4) Left inguinal hernia Assessment & Plan: reducible on exam follow up with PMD or surgery outpatient Status: Acute (5) Prophylactic measure Assessment & Plan: Scds Lovenox 30mg SC daily - per surgery Pepcid 20mg PO daily Status: Acute <Fer Gutiérrez - Last Filed: 06/04/17 13:59> Objective - Vital Signs/Intake and Output Vital Signs (last 24 hours): Temp Pulse Resp BP Pulse Ox 99.1 F 79 20 134/88 94 L 06/04/17 08:46 06/04/17 08:46 06/04/17 08:46 06/04/17 08:46 06/04/17 08:46 Intake and Output: 06/04/17 06/04/17 06:59 18:59 Intake Total 2200 Output Total 1410 Balance 790 - Medications Medications: Current Medications Bisacodyl (Dulcolax) 5 mg PO ONCE ONE Stop: 06/04/17 22:01 Docusate Sodium (Colace) 100 mg PO TID [facility] Last Admin: 06/04/17 13:22 Dose: 100 mg Famotidine (Pepcid) 20 mg PO BID [facility] Last Admin: 06/04/17 09:15 Dose: 20 mg Heparin Sodium (Porcine) (Heparin) 5,000 units SC Q12 [facility] Last Admin: 06/04/17 09:15 Dose: 5,000 units Hydromorphone HCl (Dilaudid) 0.5 mg IVP Q4H PRN PRN Reason: Pain, severe (8-10) Ceftriaxone Sodium 1 gm/ (Sodium Chloride) 100 mls @ 100 mls/hr IVPB Q12H [facility] Last Admin: 06/04/17 09:16 Dose: 100 mls/hr Metronidazole (Flagyl) 500 mg in 100 mls @ 100 mls/hr IVPB Q8 [facility] Last Admin: 06/04/17 13:23 Dose: 100 mls/hr Potassium Chloride/Dextrose/Sod Cl (Potassium Chl 20 Meq In D5-1/2ns) 1,000 mls @ 100 mls/hr IV .Q10H [facility] Last Admin: 06/04/17 04:03 Dose: 100 mls/hr Ondansetron HCl (Zofran Inj) 4 mg IVP Q6H PRN PRN Reason: Nausea/Vomiting Last Admin: 05/31/17 08:34 Dose: 4 mg Oxycodone/Acetaminophen (Percocet 5/325 Mg Tab) 1 tab PO Q4H PRN PRN Reason: Pain, moderate (4-7) Stop: 06/06/17 07:38 Last Admin: 06/04/17 05:04 Dose: 1 tab Saccharomyces Boulardii (Florastor) 250 mg PO BID [facility] Last Admin: 06/04/17 09:15 Dose: 250 mg - Labs Labs: 06/04/17 07:17 06/04/17 07:17 PT 11.5 SECONDS (9.7-12.2) 05/30/17 05:45 INR 1.0 05/30/17 05:45 APTT 29 SECONDS (21-34) 05/30/17 05:45 Attending/Attestation - Attestation I have personally seen and examined this patient.: Yes I have fully participated in the care of the patient.: Yes I have reviewed all pertinent clinical information, including history, physical exam and plan: Yes Notes (Text): 06/04/17 13:49 Hospitalist Progress Note Patient was seen and examined at 9:15 AM 06/04/17 He was admitted on 05/30/17 for evaluation of midsternal chest pain radiating to the left side of his neck. ROMIs were negative. He underwent open cholecystectomy (converted from lap betzaida) on 06/01/17. Upon FULL ROS: Pain in the RUQ area surgical site but less than before NO n/v and tolerating his meals Passing gas but NO bowel movement yet in 2 days Exam: General: AAOx3, NAD HEENT: NCA, EOMI, PERRLA, NO lymphadenopathy, NO thyromegaly, NO pharyngeal erythema/exudate Cardio: NS1 and NS2, NO M/R/G Respiratory: CTA B/L, NO R/R/W GI: BSx4, Soft, Central Obesity therefore Liver and Spleen could not be adequately palpated, NO guarding/rebound tenderness, DAX Drain with 25 ml serisanginous red fluid, NO inguinal hernias palpated Ext: Bilateral Pulses UE and LE are strong and equal, Capillary Refill is 2 seconds, NO edema Neuro: CN II through XII are grossly intact Assessments: 1). S/P Cholecystectomy 06/01/17: Ceftriaxone, Flagyl, Blood Culture is negative to date 2). Atypical Chest Pain: troponins are negative, Cardiology Dr. Licona: he will need outpatient stress test 3). Hepatitic Steatosis: Nurse Margoth has provided patient with education/ literature on low fat diet 4). Renal Cyst 2.1 cm: as seen on CT Abdomen/Pelvis, patient will need outpatient Renal U/S 5). Bilateral Inguinal Hernias: as seen on CT Abdomen/Pelvis, this was not palpated on my exam 6). Enlarged Prostate: as seen on CT Abdomen/Pelvis, he will need outpatient PSA and follow up with Urology 7). Hyponatremia: resolved 8). Hypokalemia: resolved 9). Elevated HgBA1C at 6.2: low carb diet 10). Elevated WBC: likely secondary to the Acute Cholecystitis, see Assessment # 1 above 11). Prophylaxis: Pepcid, Heparin, Dilaudid, Percocet, Zofran If there are no issues then we will discharge patient on 06/05/17 once DAX Drain is removed by Surgery. Fer Gutiérrez D.O.
[2017-06-04] MEDS: Potassium Ch 20mEq in D5-1/2NS 1,000 ML IV SCH ×2 (04:03→21:23)
[2017-06-04] MEDS: Oxycodone/Acetaminophen 5/325 mg Tab PO PRN ×2 (05:04→16:57)
[2017-06-04] MEDS: metroNIDAZOLE IV 500 mg/100 ml 500 MG/100 ML BAG IVPB SCH ×3 (05:06→23:31)
--- NOTE | 2017-06-04 06:35 | CP.PCM.PN ---
Subjective - Date & Time of Evaluation Date of Evaluation: 06/04/17 Time of Evaluation: 06:31 - Subjective Subjective: Gen Surg: Dr Shay Pt S&E. PIEDAD. Tolerating regular diet. Still with significant pain in RUQ at site of incision but controllable with medication. Has been OOB and ambulating. Passing flatus. Pt expresses he would like to remain one more day as he does not have help at home with ADLs drain 80cc serosanguinous Objective - Vital Signs/Intake and Output Vital Signs (last 24 hours): Temp Pulse Resp BP Pulse Ox 98 F 73 20 127/74 97 06/03/17 23:35 06/04/17 00:00 06/03/17 23:35 06/03/17 23:35 06/03/17 23:35 Intake and Output: 06/03/17 06/04/17 18:59 06:59 Intake Total 1280 2200 Output Total 20 1410 Balance 1260 790 - Medications Medications: Current Medications Famotidine (Pepcid) 20 mg PO BID [facility] Last Admin: 06/03/17 18:04 Dose: 20 mg Heparin Sodium (Porcine) (Heparin) 5,000 units SC Q12 [facility] Last Admin: 06/03/17 21:39 Dose: 5,000 units Hydromorphone HCl (Dilaudid) 0.5 mg IVP Q15M PRN PRN Reason: Pain, severe (8-10) Last Admin: 06/01/17 20:18 Dose: 0.5 mg Hydromorphone HCl (Dilaudid) 0.5 mg IVP Q4H PRN PRN Reason: Pain, severe (8-10) Ceftriaxone Sodium 1 gm/ (Sodium Chloride) 100 mls @ 100 mls/hr IVPB Q12H [facility] Last Admin: 06/03/17 21:39 Dose: 100 mls/hr Metronidazole (Flagyl) 500 mg in 100 mls @ 100 mls/hr IVPB Q8 [facility] Last Admin: 06/04/17 05:06 Dose: 100 mls/hr Potassium Chloride/Dextrose/Sod Cl (Potassium Chl 20 Meq In D5-1/2ns) 1,000 mls @ 100 mls/hr IV .Q10H [facility] Last Admin: 06/04/17 04:03 Dose: 100 mls/hr Ondansetron HCl (Zofran Inj) 4 mg IVP Q6H PRN PRN Reason: Nausea/Vomiting Last Admin: 05/31/17 08:34 Dose: 4 mg Oxycodone/Acetaminophen (Percocet 5/325 Mg Tab) 1 tab PO Q4H PRN PRN Reason: Pain, moderate (4-7) Stop: 06/06/17 07:38 Last Admin: 06/04/17 05:04 Dose: 1 tab Saccharomyces Boulardii (Florastor) 250 mg PO BID [facility] Last Admin: 06/03/17 18:05 Dose: 250 mg - Labs Labs: 06/03/17 07:15 06/03/17 07:15 PT 11.5 SECONDS (9.7-12.2) 05/30/17 05:45 INR 1.0 05/30/17 05:45 APTT 29 SECONDS (21-34) 05/30/17 05:45 - Constitutional Appears: Non-toxic, No Acute Distress - ENT Exam ENT Exam: Mucous Membranes Moist - Respiratory Exam Respiratory Exam: absent: Accessory Muscle Use, Respiratory Distress - Cardiovascular Exam Cardiovascular Exam: REGULAR RHYTHM - GI/Abdominal Exam GI & Abdominal Exam: Soft, Tenderness (post-op and appropriate). absent: Distended, Firm, Guarding, Rigid Additional comments: incision c/d/i - Extremities Exam Extremities Exam: absent: Pedal Edema - Neurological Exam Neurological Exam: Alert, Awake, Oriented x3 - Psychiatric Exam Psychiatric exam: Normal Affect, Normal Mood - Skin Skin Exam: Normal Color, Warm Assessment and Plan - Assessment and Plan (Free Text) Assessment: 67M POD#3 lap betzaida converted open Plan: cont reg diet cont to encourage ambulation and IS use pt clear for D/C but requesting one more day admission due to pain, no objections from surgery team cont percocet for pain f/u in office in 1 week for staple/drain removal d/w Dr Jaspal Cardenas, PGY3
[2017-06-04 07:29] LABS: BASO % 0.5 % (0.0-2.0); EOS # 0.2 K/uL (0.0-0.7); EOS % 3.3 % (0.0-4.0); HEMATOCRIT 38.9 % (35.0-51.0); LYMPH # 0.7 K/uL (1.0-4.3); LYMPH % 10.6 % (20.0-40.0); MEAN CELL VOLUME 88.3 fL (80.0-94.0); MEAN CORPUSCULAR HEMOGLOBIN 29.9 pg (27.0-31.0); MEAN CORPUSCULAR HGB CONC 33.9 g/dL (33.0-37.0); MEAN PLATELET VOLUME 8.1 fL (7.2-11.7); MONO # 1.2 K/uL (0.0-0.8); MONO % 17.5 % (0.0-10.0); NRBC % 0.1 % (0.0-2.0); WHITE BLOOD COUNT 6.9 K/uL (4.8-10.8)
[2017-06-04 07:42] LABS: ALB/GLOB RATIO 0.9 (1.0-2.1); ALKALINE PHOSPHATASE 69 U/L (38-126); ALT/SGPT 40 U/L (21-72); AST/SGOT 33 U/L (17-59); BILIRUBIN,TOTAL 0.4 mg/dL (0.2-1.3); BLOOD UREA NITROGEN 7 mg/dL (9-20); CARBON DIOXIDE 26 mmol/L (22-30); CHLORIDE 100 mmol/L (98-107); GFR AFRICAN-AMERICAN > 60; GLUCOSE,RANDOM 164 mg/dL (75-110); POTASSIUM 3.5 mmol/L (3.6-5.2); SODIUM 136 mmol/L (132-148); TOTAL PROTEIN 5.7 g/dL (6.3-8.3)
[2017-06-04] MEDS: Saccharomyces Boulardi 250 mg Cap PO SCH ×2 (09:15→16:59)
[2017-06-04] MEDS ORDERED: Bisacodyl 5mg EC Tab PO ONE (22:00)
[2017-06-05] MEDS: metroNIDAZOLE IV 500 mg/100 ml 500 MG/100 ML BAG IVPB SCH (06:00)
--- NOTE | 2017-06-05 07:46 | CP.PCM.PN ---
<Maggi Sharp - Last Filed: 06/05/17 07:47> Subjective - Date & Time of Evaluation Date of Evaluation: 06/05/17 Time of Evaluation: 07:46 - Subjective Subjective: Patient was seen and examined at bedside. Patient was resting comfortably in bed. Patient reports RUQ pain arround his incision but says it is well controlled. Pt says he had a bowel movement and is passing flatus. Pt denies fever, chills, nausea, vomiting, chest pain and palpitations. Patient reports that he is able to tolerate his diet. Patient states that he has not been using his incentive spirometer. Objective - Vital Signs/Intake and Output Vital Signs (last 24 hours): Temp Pulse Resp BP Pulse Ox 98.5 F 70 20 129/77 95 06/05/17 04:00 06/05/17 04:00 06/05/17 04:00 06/05/17 04:00 06/05/17 04:00 Intake and Output: 06/05/17 06/05/17 06:59 18:59 Output Total 1170 Balance -1170 - Medications Medications: Current Medications Docusate Sodium (Colace) 100 mg PO TID [facility] Last Admin: 06/04/17 16:59 Dose: 100 mg Famotidine (Pepcid) 20 mg PO BID [facility] Last Admin: 06/04/17 16:59 Dose: 20 mg Heparin Sodium (Porcine) (Heparin) 5,000 units SC Q12 [facility] Last Admin: 06/04/17 21:22 Dose: 5,000 units Hydromorphone HCl (Dilaudid) 0.5 mg IVP Q4H PRN PRN Reason: Pain, severe (8-10) Ceftriaxone Sodium 1 gm/ (Sodium Chloride) 100 mls @ 100 mls/hr IVPB Q12H [facility] Last Admin: 06/04/17 21:22 Dose: 100 mls/hr Metronidazole (Flagyl) 500 mg in 100 mls @ 100 mls/hr IVPB Q8 [facility] Last Admin: 06/04/17 23:31 Dose: 100 mls/hr Potassium Chloride/Dextrose/Sod Cl (Potassium Chl 20 Meq In D5-1/2ns) 1,000 mls @ 100 mls/hr IV .Q10H [facility] Last Admin: 06/04/17 21:23 Dose: 100 mls/hr Ondansetron HCl (Zofran Inj) 4 mg IVP Q6H PRN PRN Reason: Nausea/Vomiting Last Admin: 05/31/17 08:34 Dose: 4 mg Oxycodone/Acetaminophen (Percocet 5/325 Mg Tab) 1 tab PO Q4H PRN PRN Reason: Pain, moderate (4-7) Stop: 06/06/17 07:38 Last Admin: 06/04/17 16:57 Dose: 1 tab Saccharomyces Boulardii (Florastor) 250 mg PO BID [facility] Last Admin: 06/04/17 16:59 Dose: 250 mg - Labs Labs: 06/04/17 07:17 06/04/17 07:17 PT 11.5 SECONDS (9.7-12.2) 05/30/17 05:45 INR 1.0 05/30/17 05:45 APTT 29 SECONDS (21-34) 05/30/17 05:45 - GI/Abdominal Exam GI & Abdominal Exam: Soft, Tenderness (RUQ), Normal Bowel Sounds Additional comments: RUQ incision c/d/i with zachary in place. No swelling, erythema, drainage or dehiscence. DAX drain in place with minimal serosanguinous drainage. <Fer Gutiérrez - Last Filed: 06/05/17 11:57> Objective - Vital Signs/Intake and Output Vital Signs (last 24 hours): Temp Pulse Resp BP Pulse Ox 97.4 F L 73 20 125/73 94 L 06/05/17 08:28 06/05/17 08:28 06/05/17 08:28 06/05/17 08:28 06/05/17 08:28 Intake and Output: 06/05/17 06/05/17 06:59 18:59 Intake Total 920 Output Total 1170 20 Balance -1170 900 - Medications Medications: Current Medications Docusate Sodium (Colace) 100 mg PO TID [facility] Last Admin: 06/05/17 10:22 Dose: 100 mg Famotidine (Pepcid) 20 mg PO BID [facility] Last Admin: 06/05/17 10:22 Dose: 20 mg Heparin Sodium (Porcine) (Heparin) 5,000 units SC Q12 [facility] Last Admin: 06/05/17 10:22 Dose: 5,000 units Hydromorphone HCl (Dilaudid) 0.5 mg IVP Q4H PRN PRN Reason: Pain, severe (8-10) Ceftriaxone Sodium 1 gm/ (Sodium Chloride) 100 mls @ 100 mls/hr IVPB Q12H [facility] Last Admin: 06/05/17 10:15 Dose: 100 mls/hr Metronidazole (Flagyl) 500 mg in 100 mls @ 100 mls/hr IVPB Q8 [facility] Last Admin: 06/05/17 06:00 Dose: 100 mls/hr Potassium Chloride/Dextrose/Sod Cl (Potassium Chl 20 Meq In D5-1/2ns) 1,000 mls @ 100 mls/hr IV .Q10H [facility] Last Admin: 06/05/17 10:00 Dose: 100 mls/hr Ondansetron HCl (Zofran Inj) 4 mg IVP Q6H PRN PRN Reason: Nausea/Vomiting Last Admin: 05/31/17 08:34 Dose: 4 mg Oxycodone/Acetaminophen (Percocet 5/325 Mg Tab) 1 tab PO Q4H PRN PRN Reason: Pain, moderate (4-7) Stop: 06/06/17 07:38 Last Admin: 06/04/17 16:57 Dose: 1 tab Saccharomyces Boulardii (Florastor) 250 mg PO BID [facility] Last Admin: 06/05/17 10:22 Dose: 250 mg - Labs Labs: 06/04/17 07:17 06/04/17 07:17 PT 11.5 SECONDS (9.7-12.2) 05/30/17 05:45 INR 1.0 05/30/17 05:45 APTT 29 SECONDS (21-34) 05/30/17 05:45 Attending/Attestation - Attestation I have personally seen and examined this patient.: Yes I have fully participated in the care of the patient.: Yes I have reviewed all pertinent clinical information, including history, physical exam and plan: Yes Notes (Text): 06/05/17 11:47 Hospitalist Progress Note Patient was seen and examined at 11:30 AM 06/05/17 He was admitted on 05/30/17 for evaluation of midsternal chest pain radiating to the left side of his neck. ROMIs were negative. He underwent open cholecystectomy (converted from lap betzaida) on 06/01/17. Upon FULL ROS: Pain in the RUQ area surgical site is minimal NO n/v and tolerating his meals Had to well formed bowel movements today that were not black and not bloody Exam: General: AAOx3, NAD HEENT: NCA, EOMI, PERRLA, NO lymphadenopathy, NO thyromegaly, NO pharyngeal erythema/exudate Cardio: NS1 and NS2, NO M/R/G Respiratory: CTA B/L, NO R/R/W GI: BSx4, Soft, Central Obesity therefore Liver and Spleen could not be adequately palpated, NO guarding/rebound tenderness, RUQ Surgical Site with 23 zachary and no dehiscense and no signs of surrounding cellulitis, NO inguinal hernias palpated Ext: Bilateral Pulses UE and LE are strong and equal, Capillary Refill is 2 seconds, NO edema Neuro: CN II through XII are grossly intact Assessments: 1). S/P Cholecystectomy 06/01/17: Ceftriaxone, Flagyl, Blood Culture is negative to date, NO fevers. Ok for discharge as per surgery team no antibiotics needed. F/U with Surgeon Dr. Shay at his office in 7 days for staple removal 2). Atypical Chest Pain: troponins are negative, Cardiology Dr. Licona: he will need outpatient stress test 3). Hepatitic Steatosis: Nurse Margoth has provided patient with education/ literature on low fat diet on 06/04/17 4). Renal Cyst 2.1 cm: as seen on CT Abdomen/Pelvis, patient will need outpatient Renal U/S 5). Bilateral Inguinal Hernias: as seen on CT Abdomen/Pelvis, this was not palpated on my exam 6). Enlarged Prostate: as seen on CT Abdomen/Pelvis, he will need outpatient PSA and follow up with Urology 7). Hyponatremia: resolved 8). Hypokalemia: resolved 9). Elevated HgBA1C at 6.2: low carb diet 10). Elevated WBC: likely secondary to the Acute Cholecystitis, see Assessment # 1 above 11). Prophylaxis: Pepcid, Heparin, Dilaudid, Percocet, Zofran The following instructions will need to be provided to patient upon discharge in [place] and nursing order placed to do so: 1). Follow up with your Primary Care Physician Dr. Neri in 7 days for coordination of your health care. 2). Through Dr. Neri's office you will need the following: Referral for Cardiology for outpatient stress test Ultrasound of your kidneys for further evaluation of your cysts in the kidneys Blood work to measure your PSA for your prostate Referral for Urology for evaluation of your prostate Further management for increase risk for diabetes 3). Schedule follow up with Surgeon Dr. Shay to have your zachary removed in 7 days. Call his office at [phone] to schedule to have this done. 4). Continue the dietary recommendations for low fat diet. 5). You are at risk for diabetes. Please watch your carbohydrates. 6). Please take care and be well. Fer Gutiérrez D.O.
[2017-06-05 08:29] VITALS: BP 125/73; PULSE 73; TEMP 97.4; O2SAT 94
--- NOTE | 2017-06-05 09:04 | CP.PCM.PN ---
Subjective - Date & Time of Evaluation Date of Evaluation: 06/05/17 Time of Evaluation: 09:01 - Subjective Subjective: Patient was seen and examined at bedside in no acute distress. Patient reports having pain on the right side of his abdomen s/p surgery. Patient denies chest pain, headaches, fevers, nausea, vomiting, leg pain, and dizziness. Objective - Vital Signs/Intake and Output Vital Signs (last 24 hours): Temp Pulse Resp BP Pulse Ox 97.4 F L 73 20 125/73 94 L 06/05/17 08:28 06/05/17 08:28 06/05/17 08:28 06/05/17 08:28 06/05/17 08:28 Intake and Output: 06/05/17 06/05/17 06:59 18:59 Intake Total 920 Output Total 1170 20 Balance -1170 900 - Medications Medications: Current Medications Docusate Sodium (Colace) 100 mg PO TID [facility] Last Admin: 06/04/17 16:59 Dose: 100 mg Famotidine (Pepcid) 20 mg PO BID [facility] Last Admin: 06/04/17 16:59 Dose: 20 mg Heparin Sodium (Porcine) (Heparin) 5,000 units SC Q12 [facility] Last Admin: 06/04/17 21:22 Dose: 5,000 units Hydromorphone HCl (Dilaudid) 0.5 mg IVP Q4H PRN PRN Reason: Pain, severe (8-10) Ceftriaxone Sodium 1 gm/ (Sodium Chloride) 100 mls @ 100 mls/hr IVPB Q12H [facility] Last Admin: 06/04/17 21:22 Dose: 100 mls/hr Metronidazole (Flagyl) 500 mg in 100 mls @ 100 mls/hr IVPB Q8 [facility] Last Admin: 06/05/17 06:00 Dose: 100 mls/hr Potassium Chloride/Dextrose/Sod Cl (Potassium Chl 20 Meq In D5-1/2ns) 1,000 mls @ 100 mls/hr IV .Q10H [facility] Last Admin: 06/05/17 00:00 Dose: Not Given Ondansetron HCl (Zofran Inj) 4 mg IVP Q6H PRN PRN Reason: Nausea/Vomiting Last Admin: 05/31/17 08:34 Dose: 4 mg Oxycodone/Acetaminophen (Percocet 5/325 Mg Tab) 1 tab PO Q4H PRN PRN Reason: Pain, moderate (4-7) Stop: 06/06/17 07:38 Last Admin: 06/04/17 16:57 Dose: 1 tab Saccharomyces Boulardii (Florastor) 250 mg PO BID [facility] Last Admin: 06/04/17 16:59 Dose: 250 mg - Labs Labs: 06/04/17 07:17 06/04/17 07:17 PT 11.5 SECONDS (9.7-12.2) 05/30/17 05:45 INR 1.0 05/30/17 05:45 APTT 29 SECONDS (21-34) 05/30/17 05:45 - Head Exam Head Exam: ATRAUMATIC, NORMAL INSPECTION - Eye Exam Eye Exam: EOMI, Normal appearance - ENT Exam ENT Exam: Mucous Membranes Moist - Respiratory Exam Respiratory Exam: Clear to Ausculation Bilateral, NORMAL BREATHING PATTERN. absent: Rales, Rhonchi, Wheezes - Cardiovascular Exam Cardiovascular Exam: REGULAR RHYTHM, +S1, +S2. absent: Bradycardia, Tachycardia - GI/Abdominal Exam GI & Abdominal Exam: Soft, Tenderness (RUQ, RLQ s/p surgery), Hypoactive Bowel Sounds - Extremities Exam Extremities Exam: absent: Pedal Edema, Tenderness - Neurological Exam Neurological Exam: Alert, Awake, Oriented x3 - Psychiatric Exam Psychiatric exam: Normal Affect, Normal Mood - Skin Skin Exam: Dry, Intact, Normal Color, Warm Additional comments: incision clean, dry and intact Assessment and Plan - Assessment and Plan (Free Text) Assessment: 67 year old male s/p lap betzaida converted to open cholecystectomy. POD #4. - Patient is clear for discharge. - Follow up in office in one week for staple and drain removal.
[2017-06-05] MEDS: Potassium Ch 20mEq in D5-1/2NS 1,000 ML IV SCH ×2 (10:00)
[2017-06-05] MEDS: Saccharomyces Boulardi 250 mg Cap PO SCH (10:22)
--- NOTE | 2017-06-05 14:55 | CP.PCM.DIS ---
Provider - Provider Date of Admission: 05/31/17 11:50 Attending physician: Fer Gutiérrez MD Consults: Dr. Licona (cardiology) Time Spent in preparation of Discharge (in minutes): 35 Diagnosis - Discharge Diagnosis (1) Chest pain Status: Acute Comment: Please see hospital course summary for more details. (2) Leukocytosis Status: Acute Comment: Please see hospital course summary for more details. (3) S/P cholecystectomy Status: Acute Comment: Please see hospital course summary for more details. Hospital Course - Lab Results Lab Results: Micro Results 05/31/17 12:15 Blood Blood Culture - Preliminary NO GROWTH AFTER 4 DAYS 05/31/17 12:00 Blood Blood Culture - Preliminary NO GROWTH AFTER 4 DAYS 06/01/17 Unknown Other: Please Indicate Mycobacterial Culture - Preliminary 05/31/17 13:50 Urine Urine Culture - Final No Growth (<1,000 CFU/ML) Most Recent Lab Values WBC 6.9 K/uL (4.8-10.8) 06/04/17 07:17 RBC 4.41 Mil/uL (4.40-5.90) 06/04/17 07:17 Hgb 13.2 g/dL (12.0-18.0) 06/04/17 07:17 Hct 38.9 % (35.0-51.0) 06/04/17 07:17 MCV 88.3 fL (80.0-94.0) 06/04/17 07:17 MCH 29.9 pg (27.0-31.0) 06/04/17 07:17 MCHC 33.9 g/dL (33.0-37.0) 06/04/17 07:17 RDW 13.0 % (11.5-14.5) 06/04/17 07:17 Plt Count 143 K/uL (130-400) 06/04/17 07:17 MPV 8.1 fL (7.2-11.7) 06/04/17 07:17 Neut % (Auto) 68.1 % (50.0-75.0) 06/04/17 07:17 Lymph % (Auto) 10.6 % (20.0-40.0) L 06/04/17 07:17 Stanley % (Auto) 17.5 % (0.0-10.0) H 06/04/17 07:17 Eos % (Auto) 3.3 % (0.0-4.0) 06/04/17 07:17 Baso % (Auto) 0.5 % (0.0-2.0) 06/04/17 07:17 Neut # 4.7 K/uL (1.8-7.0) 06/04/17 07:17 Lymph # 0.7 K/uL (1.0-4.3) L 06/04/17 07:17 Stanley # 1.2 K/uL (0.0-0.8) H 06/04/17 07:17 Eos # 0.2 K/uL (0.0-0.7) 06/04/17 07:17 Baso # 0.0 K/uL (0.0-0.2) 06/04/17 07:17 Neutrophils % (Manual) 72 % (50-75) 06/03/17 07:15 Band Neutrophils % 17 % (0-2) H* 06/03/17 07:15 Lymphocytes % (Manual) 6 % (20-40) L 06/03/17 07:15 Monocytes % (Manual) 3 % (0-10) 06/03/17 07:15 Eosinophils % (Manual) 2 % (0-4) 06/03/17 07:15 Toxic Granulation Present 06/02/17 07:16 Platelet Estimate Normal (NORMAL) 06/03/17 07:15 Large Platelets Present 06/02/17 07:16 RBC Morphology Normal 06/03/17 07:15 Polychromasia Slight 06/02/17 07:16 Hypochromasia (manual) Slight 06/02/17 07:16 Anisocytosis (manual) Slight 06/02/17 07:16 PT 11.5 SECONDS (9.7-12.2) 05/30/17 05:45 INR 1.0 05/30/17 05:45 APTT 29 SECONDS (21-34) 05/30/17 05:45 D-Dimer, Quantitative < 200 ng/mlDDU (0-243) 05/30/17 11:36 Sodium 136 mmol/L (132-148) 06/04/17 07:17 Potassium 3.5 mmol/L (3.6-5.2) L 06/04/17 07:17 Chloride 100 mmol/L (98-107) 06/04/17 07:17 Carbon Dioxide 26 mmol/L (22-30) 06/04/17 07:17 Anion Gap 14 (10-20) 06/04/17 07:17 BUN 7 mg/dL (9-20) L 06/04/17 07:17 Creatinine 0.7 MG/DL (0.8-1.5) L 06/04/17 07:17 Est GFR ( Amer) > 60 06/04/17 07:17 Est GFR (Non-Af Amer) > 60 06/04/17 07:17 Random Glucose 164 mg/dL (75-110) H 06/04/17 07:17 Hemoglobin A1c 6.2 % (4.2-6.5) 05/30/17 10:01 Lactic Acid 1.4 mmol/L (0.7-2.1) 06/02/17 14:14 Calcium 8.0 mg/dl (8.6-10.4) L 06/04/17 07:17 Total Bilirubin 0.4 mg/dL (0.2-1.3) 06/04/17 07:17 AST 33 U/L (17-59) 06/04/17 07:17 ALT 40 U/L (21-72) 06/04/17 07:17 Alkaline Phosphatase 69 U/L (38-126) 06/04/17 07:17 Total Creatine Kinase 165 U/L (55-170) 05/30/17 17:11 CK-MB (Mass) 1.50 ng/mL (0.0-3.38) 05/30/17 17:11 Troponin I < 0.0120 ng/mL (0.00-0.120) 05/30/17 09:55 Troponin I, Quant < 0.0120 ng/mL (0.00-0.120) 05/30/17 17:11 Total Protein 5.7 g/dL (6.3-8.3) L 06/04/17 07:17 Albumin 2.7 g/dL (3.5-5.0) L 06/04/17 07:17 Globulin 3.0 gm/dL (2.2-3.9) 06/04/17 07:17 Albumin/Globulin Ratio 0.9 (1.0-2.1) L 06/04/17 07:17 Triglycerides 30 mg/dL (0-149) 05/30/17 09:55 Cholesterol 156 mg/dL (0-199) 05/30/17 09:55 LDL Cholesterol Direct 119 mg/dL (0-129) 05/30/17 09:55 HDL Cholesterol 48 mg/dL (30-70) 05/30/17 09:55 Amylase 69 U/L (30-110) 05/30/17 09:55 Lipase 68 U/L (23-300) 05/30/17 09:55 TSH 3rd Generation 2.33 mIU/L (0.46-4.68) 05/30/17 09:55 Urine Color Yellow (YELLOW) 05/31/17 12:55 Urine Clarity Clear (Clear) 05/31/17 12:55 Urine pH 5.0 (5.0-8.0) 05/31/17 12:55 Ur Specific [place] 1.010 (1.003-1.030) 05/31/17 12:55 Urine Protein Negative mg/dL (NEGATIVE) 05/31/17 12:55 Urine Glucose (UA) Normal mg/dL (Normal) 05/31/17 12:55 Urine Ketones Negative mg/dL (NEGATIVE) 05/31/17 12:55 Urine Blood 1+ (NEGATIVE) H 05/31/17 12:55 Urine Nitrate Negative (NEGATIVE) 05/31/17 12:55 Urine Bilirubin Negative (NEGATIVE) 05/31/17 12:55 Urine Urobilinogen Normal mg/dL (0.2-1.0) 05/31/17 12:55 Ur Leukocyte Esterase Neg Tong/uL (Negative) 05/31/17 12:55 Urine WBC (Auto) < 1 /hpf (0-5) 05/31/17 12:55 Urine RBC (Auto) 2 /hpf (0-3) 05/31/17 12:55 - Hospital Course Hospital Course: Upon Admission: Patient is a 67 year old male with past medical history of thyroid disease who presents to the ED with complaints of reproducible mid-sternal chest pain that started at 1:30am after waking up from sleep to go to the bathroom. Patient describes his chest pain as an 8/10 chest pressure that radiates to the left side of his back. Patient's pain is exacerbated with positional changes and has increase in intensity since its onset. Patient states that he did some heavy lifting yesterday ( moving a sofa and a bed). Patient admits to diaphoresis, nausea, (vomiting episode in the ED), chills, mild abdominal pain and back pain but denies palpitation, shortness of breath, cough, change in bowel habits, urinary symptoms and recent sick contact. Hospital Course: Patient was admitted for reproducible mid-sternal chest pain. The patient received an EKG and CXR on 05/30/17 which showed normal sinus rhythm and no active pulmonary disease respectively. Cardiology (Dr. Licona) was consulted and recommended that if ACS work-up is negative, outpatient myocardial perfusion imaging may be needed. Patient received an abdominal US on 05/31/17 which showed trace right upper quadrant ascites, cholelithiasis including immobile stones at the gallbladder neck, and a 5mm probable gallbladder polyp. Current recommendations indicated continued surveillance with serial follow-up imaging at 3, 6, and 12 months. The patient also underwent an abdominal/pelvis CT on 05/31/17 which showed mild bibasilar atelectasis, hepatic steatosis, distended gallbladder, 2.1cm right renal cyst, gastric wall thickening distally with mild adjacent inflammatory changes, small RUQ ascites, large left and [id number] right fat containing inguinal hernias, and an enlarged prostate. Surgery was consulted and diagnosed the patient with acute gangrenous cholecystitis and cholelithiasis. Laparoscopic cholecystectomy was attempted on 06/01/17 but converted to an open cholecystectomy. Patient reported post-operative pain but had no other complaints and had an otherwise unremarkable post-op period. Patient reported normal BM and was passing flatus, as well as tolerating diet at time of surgery clearance. Patient is stable for discharge from a medical standpoint. Please note that this is a summary of events - please refer to medical records for further details. The following instructions will need to be provided to patient upon discharge in [place] and nursing order placed to do so: 1). Follow up with your Primary Care Physician Dr. Neri in 7 days for coordination of your health care. 2). Through Dr. Neri's office you will need the following: Referral for Cardiology for outpatient stress test Ultrasound of your kidneys for further evaluation of your cysts in the kidneys Blood work to measure your PSA for your prostate Referral for Urology for evaluation of your prostate Further management for increase risk for diabetes 3). Schedule follow up with Surgeon Dr. Shay to have your zachary removed in 7 days. Call his office at [phone] to schedule to have this done. 4). Continue the dietary recommendations for low fat diet. 5). You are at risk for diabetes. Please watch your carbohydrates. 6). Please take care and be well. - Date & Time of H&P Date of H&P: 05/30/17 Time of H&P: 09:25 Discharge Exam - Head Exam Head Exam: ATRAUMATIC, NORMAL INSPECTION - Eye Exam Eye Exam: EOMI - ENT Exam ENT Exam: Mucous Membranes Moist - Respiratory Exam Respiratory Exam: UNREMARKABLE - Cardiovascular Exam Cardiovascular Exam: REGULAR RHYTHM, +S1, +S2 - GI/Abdominal Exam GI & Abdominal Exam: Normal Bowel Sounds, Soft, Tenderness (mild appropriate post op RUQ tenderness). absent: Distended Additional comments: RUQ incision c/d/i. No Erythema or swelling noted around incision. [place] in place. - Extremities Exam Extremities exam: normal inspection - Neurological Exam Neurological exam: Alert, Oriented x3 - Psychiatric Exam Psychiatric exam: Normal Affect, Normal Mood - Skin Skin Exam: Dry, Intact, Normal Color, Warm Discharge Plan - Follow Up Plan Condition: FAIR Disposition: HOME/ ROUTINE Instructions: Open Herniorrhaphy (DC), Laparoscopic Herniorrhaphy (DC), Inguinal Hernia (DC) Additional Instructions: The following instructions will need to be provided to patient upon discharge in [place] and nursing order placed to do so: 1). Follow up with your Primary Care Physician Dr. Neri in 7 days for coordination of your health care. 2). Through Dr. Neri's office you will need the following: Referral for Cardiology for outpatient stress test Ultrasound of your kidneys for further evaluation of your cysts in the kidneys Blood work to measure your PSA for your prostate Referral for Urology for evaluation of your prostate Further management for increase risk for diabetes 3). Schedule follow up with Surgeon Dr. Shay to have your zachary removed in 7 days. Call his office at [phone] to schedule to have this done. 4). Continue the dietary recommendations for low fat diet. 5). You are at risk for diabetes. Please watch your carbohydrates. 6). You may use the following for pain: Tylenol 500 mg, 1 tablet by mouth every 6 hours as needed for moderate pain Ibuprofen 200 mg, 3 tablets by mouth every 6 hours as needed for severe pain 7). Please take care and be well. Referrals: Mamadou Shay MD [Staff Provider] - Torsten Neri MD [Staff Provider] - Louie Licona MD [Staff Provider] -
--- NOTE | 2017-06-08 18:33 | CARD ---
APPROVED REPORT EKG Measurement Heart [id number] <Conclusion> Normal sinus rhythm Normal ECG
== END 2017-06-05 14:20 | disposition home or self-care (01) | DRG 415 ==
LOC: C.ER 02:52 → C.9E 04:41 → C.5T 04:41 → UNDOADMIN 04:41 → OBSVTOIN 05-31 11:50 → C.6T 05-31 14:47
PROVIDERS: ADMIT Hospitalist; ATTEND Family Medicine
PROC: 0FT40ZZ Resection of Gallbladder, Open Approach (ICD-10-PCS; principal; 2017-05-31)
PROC: 0FJ44ZZ Inspection of Gallbladder, Percutaneous Endoscopic Approach (ICD-10-PCS; 2017-05-31)
DX: K80.00 Calculus of gallbladder with acute cholecystitis without obstruction (principal); R18.8 Other ascites; K76.0 Fatty (change of) liver, not elsewhere classified; J98.11 Atelectasis; E03.9 Hypothyroidism, unspecified; K66.0 Peritoneal adhesions (postprocedural) (postinfection); K80.10 Calculus of gallbladder with chronic cholecystitis without obstruction; K40.90 Unilateral inguinal hernia, without obstruction or gangrene, not specified as recurrent; R07.2 Precordial pain; N28.1 Cyst of kidney, acquired; N40.0 Benign prostatic hyperplasia without lower urinary tract symptoms; Z53.31 Laparoscopic surgical procedure converted to open procedure; Z79.82 Long term (current) use of aspirin; K29.70 Gastritis, unspecified, without bleeding; D72.825 Bandemia